=== PATIENT | female | born 1960 | race Caucasian/White ===

== ENCOUNTER 2017-01-19 14:22 | Emergency (ER) | payer BC ==
[2017-01-19 14:43] VITALS: BP 139/74
--- NOTE | 2017-01-19 15:25 | UC ---
UC General HPI - HPI Summary HPI Summary: Chest burning fatigue, chest hurts and he gets fatigued with ambulation - History of Current Complaint Chief Complaint: UCGeneralIllness Stated Complaint: HEADACHE CHEST JOHNSON FEVER Time Seen by Provider: 01/19/17 15:17 Hx Obtained From: Patient Onset/Duration: Sudden Onset Timing: Constant Onset Severity: Moderate Current Severity: Moderate - Allergy/Home Medications Allergies/Adverse Reactions: Allergies Allergy/AdvReac Type Severity Reaction Status Date / Time Droperidol Allergy Severe DYSTONIC Verified 01/19/17 14:43 REACTION Metoclopramide [From Reglan] Allergy Severe Anaphylatic Verified 01/19/17 14:43 Shock Prochlorperazine Allergy Severe DYSTONIC Verified 01/19/17 14:43 [From Compazine] REACTION Fenofibrate [From Tricor] Allergy Unknown Verified 01/19/17 14:43 Reaction Details Gentamicin Allergy Unknown Verified 01/19/17 14:43 Reaction Details PMH/Surg Hx/FS Hx/Imm Hx Previously Healthy: No Endocrine History: Diabetes Cardiovascular History: Cardiac Disease GI/ History: Gastroesophageal Reflux, Other Other GI/ History: kidney transplant - Surgical History Surgical History: Yes Surgery Procedure, Year, and Place: RIGHT KIDNEY TRANSPLANT 1997, APPENDECTOMY, OVARIAN CYST, CHOLECYSTECTOMY, one ovary removed; dialysis grafts - Family History Known Family History: Positive: None - Social History Occupation: Employed Full-time Lives: With Family Alcohol Use: Rare Substance Use Type: None Smoking Status (MU): Never Smoked Tobacco - Immunization History Most Recent Influenza Vaccination: fall 2016 Review of Systems Constitutional: Negative Skin: Negative Eyes: Negative ENT: Negative Respiratory: Shortness Of Breath Cardiovascular: Chest Pain Gastrointestinal: Negative Genitourinary: Negative Motor: Negative Neurovascular: Negative Musculoskeletal: Negative Neurological: Negative Psychological: Negative Is Patient Immunocompromised?: No All Other Systems Reviewed And Are Negative: Yes Physical Exam Triage Information Reviewed: Yes Appearance: Well-Appearing, No Pain Distress, Well-Nourished Vital Signs: Initial Vital Signs Temp 98.8 F 01/19/17 14:38 Pulse 95 01/19/17 14:38 Resp 16 01/19/17 14:38 BP 139/74 01/19/17 14:38 Pulse Ox 99 01/19/17 14:38 Vital Signs Reviewed: Yes Eye Exam: Normal Eyes: Positive: Conjunctiva Clear ENT Exam: Normal ENT: Positive: Normal ENT inspection, Hearing grossly normal. Negative: Trismus , Muffled voice, Hoarse voice Dental Exam: Normal Neck exam: Normal Neck: Positive: Supple, Nontender Respiratory Exam: Normal Respiratory: Positive: Chest non-tender, No respiratory distress, No accessory muscle use Cardiovascular Exam: Normal Cardiovascular: Positive: RRR, No Murmur, Pulses Normal, Brisk Capillary Refill Musculoskeletal Exam: Normal Musculoskeletal: Positive: Strength Intact, ROM Intact, No Edema Neurological Exam: Normal Neurological: Positive: Alert, Muscle Tone Normal Psychological Exam: Normal Skin Exam: Normal Course/Dx - Course Course Of Treatment: to ed by private car - Differential Dx - Multi-Symptom Provider Diagnoses: fatigue Discharge - Discharge Plan Condition: Stable Disposition: HOME Patient Education Materials: Fatigue (ED) Referrals: Krunal Starr MD [Primary Care Provider] - Additional Instructions: Please go directly to the emergency department for additional care than what can be provided for her in the urgent care
== END 2017-01-19 15:36 | disposition home or self-care (01) ==
LOC: UCEAST 14:22
DX: R53.83 Other fatigue (principal); R07.89 Other chest pain; R06.02 Shortness of breath; R51 Headache; Z88.8 Allergy status to other drugs, medicaments and biological substances; E11.9 Type 2 diabetes mellitus without complications; I51.9 Heart disease, unspecified; K21.9 Gastro-esophageal reflux disease without esophagitis; Z94.0 Kidney transplant status; Z90.49 Acquired absence of other specified parts of digestive tract; Z90.721 Acquired absence of ovaries, unilateral
CPT/HCPCS: 99212; G0463

== ENCOUNTER 2017-01-19 15:51 | Emergency (ER) | payer BC ==
[2017-01-19] MEDS ORDERED: NS 0.9% 1000 ML* 1,000 ML IV ONE (17:03)
--- NOTE | 2017-01-19 17:43 | RAD ---
HISTORY: Sepsis COMPARISONS: February 25, 2013 VIEWS: 1: frontal portable view of the chest at 5:28 PM FINDINGS: LINES AND TUBES: None. CARDIOMEDIASTINAL SILHOUETTE: The cardiomediastinal silhouette is normal for portable technique. PLEURA: The costophrenic angles are sharp. No pleural abnormalities are noted. LUNG PARENCHYMA: The lungs are clear. ABDOMEN: The upper abdomen is clear. There is no subphrenic gas. BONES AND SOFT TISSUES: No bone or soft tissue abnormalities are noted. IMPRESSION: NO ACTIVE CARDIOPULMONARY DISEASE.
[2017-01-19] MEDS ORDERED: Ondansetron INJ* 2 MG/ML VIAL IV ONE (18:01)
[2017-01-19] MEDS ORDERED: Acetaminophen TAB* 325 MG PO ONE (18:01)
[2017-01-19 18:02] LABS: Hematocrit 42 % (35-47); Hemoglobin 13.7 g/dl (12.0-16.0); Mean Corpuscular HGB Conc 33 g/dl (31-36); Mean Corpuscular Hemoglobin 30 pg (27-31); Mean Corpuscular Volume 90 fL (80-97); Mean Platelet Volume 8 um3 (7.4-10.4); Red Blood Count 4.63 10^6/ul (4.0-5.4); Red Cell Distribution Width 13 % (10.5-15); White Blood Count 11.7 10^3/ul (3.5-10.8)
[2017-01-19 18:13] LABS: Potassium 4.3 mmol/L (3.5-5.0)
[2017-01-19 18:14] LABS: Albumin 3.7 g/dL (3.2-5.2); BUN/Creatinine Ratio 19.1 (8-20); C Reactive Protein 92.15 mg/L (< 5.00); Calcium 9.8 mg/dL (8.6-10.3); Globulin 3.3 g/dL (2-4); Total Bilirubin 0.7 mg/dL (0.2-1.0)
[2017-01-19 18:15] LABS: Troponin I 0.01 ng/mL (<0.04)
[2017-01-19] MEDS ORDERED: Ciprofloxacin 400MG IVPREMIX(* 400 MG/200 ML BAG IVPB ONE (18:45)
[2017-01-19] MEDS ORDERED: methylPREDNISolone 125 MG* 2 ML VIAL IV ONE (19:27)
[2017-01-19 20:33] LABS: Urine Bacteria Absent (Absent); Urine Bilirubin Negative (Negative); Urine Glucose Negative (Negative); Urine Nitrite Negative (Negative)
[2017-01-19 22:10] VITALS: BP 136/61
--- NOTE | 2017-01-20 10:19 | ED ---
Rahel Hinton Thomas, scribed for Ross Cruz MD on 01/19/17 at 1707 . Headache - HPI Summary HPI Summary: The pt is a 56 y/o F presenting to the ED after being sent from urgent care c/o headache that began two days ago. The pain is in the front of her head and is rated 7/10. The pain is aggravated by nothing and is alleviated by nothing. The patient has treated the pain with Tylenol and rest [employer]. Pt additionally c/o fever, decreased appetite, chills and fatigue. Pt denies cough, dysuria, diarrhea and constipation. Pt notes a kidney transplant 20 years ago. Four days ago, results from the patients blood work indicated hyperkalemia and increased creatinine - History Of Current Complaint Chief Complaint: EDGeneral Stated Complaint: GENERAL ILLNESS-SENT FROM [facility] Time Seen by Provider: 01/19/17 16:50 Hx Obtained From: Patient Onset/Duration: Started days ago - 2 days ago, Still Present Initially Headache Was: Moderate Currently Pain Is: Moderate Timing: Constant Location of Headache: Frontal Aggravating Factor: Nothing Allevating Factors: Nothing Associated Signs And Symptoms: Other (Noted In Comments) - Headache, fever, chills, fatigue, decreased appetite; NEGATIVE: cough, dysuria, diarrhea, constipation - Allergies/Home Medications Allergies/Adverse Reactions: Allergies Allergy/AdvReac Type Severity Reaction Status Date / Time Droperidol Allergy Severe DYSTONIC Verified 01/19/17 14:43 REACTION Metoclopramide [From Reglan] Allergy Severe Anaphylatic Verified 01/19/17 14:43 Shock Prochlorperazine Allergy Severe DYSTONIC Verified 01/19/17 14:43 [From Compazine] REACTION Fenofibrate [From Tricor] Allergy Unknown Verified 01/19/17 14:43 Reaction Details Gentamicin Allergy Unknown Verified 01/19/17 14:43 Reaction Details PMH/Surg Hx/FS Hx/Imm Hx Previously Healthy: No Endocrine/Hematology History: Reports: Hx Diabetes Denies: Hx Thyroid Disease Cardiovascular History: Denies: Hx Hypertension, Hx Pacemaker/ICD Respiratory History: Denies: Hx Asthma, Hx Chronic Obstructive Pulmonary Disease (COPD) GI History: Denies: Hx Ulcer History: Reports: Other Problems/Disorders - Hx kidney transplant Sensory History: Reports: Hx Hearing Aid - WILL REMOVE Psychiatric History: Denies: Hx Panic Disorder - Surgical History Surgery Procedure, Year, and Place: RIGHT KIDNEY TRANSPLANT 1997, APPENDECTOMY, OVARIAN CYST, CHOLECYSTECTOMY, one ovary removed; dialysis grafts Infectious Disease History: No Infectious Disease History: Denies: Hx Clostridium Difficile, Hx Hepatitis, Hx Human Immunodeficiency Virus (HIV), Hx of Known/Suspected MRSA, Hx Shingles, Hx Tuberculosis, Hx Known/ Suspected VRE, Hx Known/Suspected VRSA, History Other Infectious Disease, Traveled Outside the [place] in Last 30 Days - Family History Known Family History: Positive: Diabetes - Social History Alcohol Use: Rare Substance Use Type: Reports: None Smoking Status (MU): Never Smoked Tobacco Review of Systems Positive: Fever, Chills, Fatigue, Other - Decreased appetite Negative: Cough Positive: Other - NEGATIVE: constipation. Negative: Diarrhea Negative: dysuria Positive: Headache All Other Systems Reviewed And Are Negative: Yes Physical Exam - Summary Physical Exam Summary: Appearance: The patient is well-nourished in no acute distress and in no acute pain. Skin: The skin is warm and dry and skin color reflects adequate perfusion. HEENT: The head is normocephalic and atraumatic. The pupils are equal and reactive. The conjunctivae are clear and without drainage. Nares are patent and without drainage. Mouth reveals moist mucous membranes and the throat is without erythema and exudate. The external ears are intact. The ear canals are patent and without drainage. The tympanic membranes are intact. Neck: The neck is supple with full range of motion and non-tender. There are no carotid bruits. There is no neck vein distension. Respiratory: Chest is non-tender. Lungs are clear to auscultation and breath sounds are symmetrical and equal. Cardiovascular: Heart is regular rate and rhythm. There is no murmur or rub auscultated. There is no peripheral edema and pulses are symmetrical and equal. Abdomen: The abdomen is soft and non-tender. There are normal bowel sounds heard in all four quadrants and there is no organomegaly palpated. Musculoskeletal: There is no back tenderness noted. Extremities are non-tender with full range of motion. There is good capillary refill. There is no peripheral edema or calf tenderness elicited. Neurological: Patient is alert and oriented to person, place and time. The patient has symmetrical motor strength in all four extremities. Cranial nerves are grossly intact. Deep tendon reflexes are symmetrical and equal in all four extremities. Psychiatric: The patient has an appropriate affect and does not exhibit any anxiety or depression. Triage Information Reviewed: Yes Vital Signs On Initial Exam: Initial Vitals Temp Pulse Resp BP Pulse Ox 100.5 F 100 16 162/80 97 01/19/17 15:59 01/19/17 15:59 01/19/17 15:59 01/19/17 15:59 01/19/17 15:59 Vital Signs Reviewed: Yes Diagnostics - Vital Signs Vital Signs Temp Pulse Resp BP Pulse Ox 01/19/17 15:59 100.5 F 100 16 162/80 97 - Laboratory Lab Results: Lab Results 01/19/17 01/19/17 01/19/17 Range/Units 17:40 17:40 17:40 WBC 11.7 H (3.5-10.8) 10^3/ul RBC 4.63 (4.0-5.4) 10^6/ul Hgb 13.7 (12.0-16.0) g/dl Hct 42 (35-47) % MCV 90 (80-97) fL MCH 30 (27-31) pg MCHC 33 (31-36) g/dl RDW 13 (10.5-15) % Plt Count 315 (150-450) 10^3/ul MPV 8 (7.4-10.4) um3 Neut % (Auto) 74.4 (38-83) % Lymph % (Auto) 10.9 L (25-47) % [place] % (Auto) 10.6 H (1-9) % Eos % (Auto) 3.5 (0-6) % Baso % (Auto) 0.6 (0-2) % Absolute Neuts (auto) 8.7 H (1.5-7.7) 10^3/ul Absolute Lymphs (auto) 1.3 (1.0-4.8) 10^3/ul Absolute Monos (auto) 1.2 H (0-0.8) 10^3/ul Absolute Eos (auto) 0.4 (0-0.6) 10^3/ul Absolute Basos (auto) 0.1 (0-0.2) 10^3/ul Absolute Nucleated RBC 0 10^3/ul Nucleated RBC % 0 APTT 31.0 (26.0-36.3) seconds Sodium 138 (133-145) mmol/L Potassium 4.3 (3.5-5.0) mmol/L Chloride 106 (101-111) mmol/L Carbon Dioxide 25 (22-32) mmol/L Anion Gap 7 (2-11) mmol/L BUN 22 (6-24) mg/dL Creatinine 1.15 H (0.51-0.95) mg/dL Est GFR ( Amer) 63.0 (>60) Est GFR (Non-Af Amer) 49.0 (>60) BUN/Creatinine Ratio 19.1 (8-20) Glucose 140 H (70-100) mg/dL Lactic Acid (0.5-2.0) mmol/L Calcium 9.8 (8.6-10.3) mg/dL Total Bilirubin 0.70 (0.2-1.0) mg/dL AST 11 L (13-39) U/L ALT 14 (7-52) U/L Alkaline Phosphatase 87 (34-104) U/L Troponin I 0.01 (<0.04) ng/mL C-Reactive Protein 92.15 H (< 5.00) mg/L Total Protein 7.0 (6.4-8.9) g/dL Albumin 3.7 (3.2-5.2) g/dL Globulin 3.3 (2-4) g/dL Albumin/Globulin Ratio 1.1 (1-3) Urine Color Urine Appearance Urine pH (5-9) Ur Specific [place] (1.010-1.030) Urine Protein (Negative) Urine Ketones (Negative) Urine Blood (Negative) Urine Nitrate (Negative) Urine Bilirubin (Negative) Urine Urobilinogen (Negative) Ur Leukocyte Esterase (Negative) Urine WBC (Auto) (Absent) Urine RBC (Auto) (Absent) Ur Squamous Epith Cells (Absent) Urine Bacteria (Absent) Urine Glucose (Negative) Influenza A (Rapid) (Negative) Influenza B (Rapid) (Negative) 01/19/17 01/19/17 01/19/17 Range/Units 17:40 20:10 20:25 WBC (3.5-10.8) 10^3/ul RBC (4.0-5.4) 10^6/ul Hgb (12.0-16.0) g/dl Hct (35-47) % MCV (80-97) fL MCH (27-31) pg MCHC (31-36) g/dl RDW (10.5-15) % Plt Count (150-450) 10^3/ul MPV (7.4-10.4) um3 Neut % (Auto) (38-83) % Lymph % (Auto) (25-47) % [place] % (Auto) (1-9) % Eos % (Auto) (0-6) % Baso % (Auto) (0-2) % Absolute Neuts (auto) (1.5-7.7) 10^3/ul Absolute Lymphs (auto) (1.0-4.8) 10^3/ul Absolute Monos (auto) (0-0.8) 10^3/ul Absolute Eos (auto) (0-0.6) 10^3/ul Absolute Basos (auto) (0-0.2) 10^3/ul Absolute Nucleated RBC 10^3/ul Nucleated RBC % APTT (26.0-36.3) seconds Sodium (133-145) mmol/L Potassium (3.5-5.0) mmol/L Chloride (101-111) mmol/L Carbon Dioxide (22-32) mmol/L Anion Gap (2-11) mmol/L BUN (6-24) mg/dL Creatinine (0.51-0.95) mg/dL Est GFR ( Amer) (>60) Est GFR (Non-Af Amer) (>60) BUN/Creatinine Ratio (8-20) Glucose (70-100) mg/dL Lactic Acid 1.1 (0.5-2.0) mmol/L Calcium (8.6-10.3) mg/dL Total Bilirubin (0.2-1.0) mg/dL AST (13-39) U/L ALT (7-52) U/L Alkaline Phosphatase (34-104) U/L Troponin I (<0.04) ng/mL C-Reactive Protein (< 5.00) mg/L Total Protein (6.4-8.9) g/dL Albumin (3.2-5.2) g/dL Globulin (2-4) g/dL Albumin/Globulin Ratio (1-3) Urine Color [place] Urine Appearance Cloudy Urine pH 5.0 (5-9) Ur Specific [place] 1.015 (1.010-1.030) Urine Protein 1+(30 mg/dl) H (Negative) Urine Ketones Trace H (Negative) Urine Blood 1+ H (Negative) Urine Nitrate Negative (Negative) Urine Bilirubin Negative (Negative) Urine Urobilinogen Negative (Negative) Ur Leukocyte Esterase 3+ H (Negative) Urine WBC (Auto) 3+(>20/hpf) H (Absent) Urine RBC (Auto) 3+(>10/hpf) H (Absent) Ur Squamous Epith Cells Present H (Absent) Urine Bacteria Absent (Absent) Urine Glucose Negative (Negative) Influenza A (Rapid) Negative (Negative) Influenza B (Rapid) Negative (Negative) Result Diagrams: 01/19/17 17:40 01/19/17 17:40 Lab Statement: Any lab studies that have been ordered have been reviewed, and results considered in the medical decision making process. - Radiology CXR Xray Interpretation: No Acute Changes - No active cardiopulmonary disease. ED physician has reviewed this report and agrees. Radiology Interpretation Completed By: Radiologist Headache Course/Dx - Course Course Of Treatment: Ms. Cordova presented with a low grade fever and feeling general malaise and exhaustion. She is immune suppressed and her labs are generally OK. We are still awaiting U/A and her Flu swab. - Diagnoses Provider Diagnoses: Fever Discharge - Discharge Plan Condition: Good Disposition: HOME Prescriptions: Ondansetron ODT TAB* [Zofran 4 MG Odt TAB*] 4 mg PO Q8H PRN 7 Days #21 tab.odt MDD 3 PRN Reason: NAUSEA OR VOMITING Ondansetron ODT TAB* [Zofran Odt TAB*] 4 mg PO Q8H PRN #20 tab.odt PRN Reason: Nausea/Vomiting predniSONE TAB* [Deltasone TAB*] 10 mg PO DAILY #6 tab predniSONE TAB* [Deltasone TAB*] 10 mg PO DAILY #6 tab MDD 1 Sulfamethox/Trimethoprim DS* [Bactrim DS 800/160 TAB*] 1 tab PO BID 5 Days #10 tab MDD 2 Sulfamethox/Trimethoprim DS* [Bactrim DS 800/160 TAB*] 1 tab PO BID #10 tab Patient Education Materials: Urinary Traction Infection in Older Adults (ED) Referrals: Krunal Starr MD [Primary Care Provider] - Additional Instructions: as tolerated The documentation as recorded by the Rahel camacho Thomas accurately reflects the service I personally performed and the decisions made by me, Ross Cruz MD.
== END 2017-01-19 23:02 | disposition home or self-care (01) ==
LOC: ED 15:51
DX: R50.9 Fever, unspecified (principal); E11.9 Type 2 diabetes mellitus without complications
CPT/HCPCS: 36415; 71010; 80053; 81003; 81015; 83605; 84484; 85025; 85730; 86140; 87040; 87086; 87502; 99284; A9270-GY; J0744; J2405; J2930

== ENCOUNTER 2017-02-03 20:13 | Inpatient (IN) | payer BC ==
[2017-02-03] MEDS ORDERED: Aspirin Low Dose CHEW TAB* 81 MG PO ONE (20:42)
[2017-02-03] MEDS ORDERED: Nitroglycerin 2% OINT* 1 GM PAK TOPICAL ONE (20:42)
[2017-02-03] MEDS ORDERED: Ibuprofen TAB* 600 MG PO ONE (21:03)
[2017-02-03 21:11] LABS: Hematocrit 37 % (35-47); Hemoglobin 12.3 g/dl (12.0-16.0); Mean Corpuscular HGB Conc 33 g/dl (31-36); Mean Corpuscular Hemoglobin 29 pg (27-31); Mean Corpuscular Volume 88 fL (80-97); Mean Platelet Volume 8 um3 (7.4-10.4); Red Blood Count 4.21 10^6/ul (4.0-5.4); Red Cell Distribution Width 14 % (10.5-15); White Blood Count 15.2 10^3/ul (3.5-10.8)
[2017-02-03] MEDS ORDERED: traMADol TAB* 50 MG PO ONE (21:24)
--- NOTE | 2017-02-03 21:27 | RAD ---
INDICATION: Chest pain. COMPARISON: Comparison is made with a prior study from January 19, 2017. TECHNIQUE: A portable view of the chest was obtained. FINDINGS: Cardiac and mediastinal contours appear to be within normal limits. The lungs are clear. No pleural effusion is seen. IMPRESSION: NO EVIDENCE FOR ACUTE DISEASE.
[2017-02-03 21:28] LABS: ALT 26 U/L (7-52); Albumin 3.2 g/dL (3.2-5.2); Alkaline Phosphatase 74 U/L (34-104); BUN/Creatinine Ratio 20.8 (8-20); Blood Urea Nitrogen 25 mg/dL (6-24); CO2 Carbon Dioxide 24 mmol/L (22-32); Calcium 9.2 mg/dL (8.6-10.3); Chloride 106 mmol/L (101-111); EGFR Non-African American 46.6 (>60); Globulin 2.6 g/dL (2-4); Glucose 141 mg/dL (70-100); Sodium 136 mmol/L (133-145); Total Protein 5.8 g/dL (6.4-8.9)
[2017-02-03 21:30] LABS: Troponin I 0.02 ng/mL (<0.04)
[2017-02-03 21:34] LABS: Anion Gap 6 mmol/L (2-11)
[2017-02-03] MEDS ORDERED: Trimethobenzamide CAP* 300 MG PO PRN (22:17)
[2017-02-03] MEDS ORDERED: Ondansetron ODT TAB* 4 MG PO PRN (22:17)
[2017-02-03] MEDS ORDERED: Dextrose 50% Syringe 50 ML* 25 GM/50 ML SYRINGE IV PUSH PRN (22:21)
[2017-02-03] MEDS ORDERED: NS 0.9% 1000 ML* 1,000 ML IV SCH (23:00)
[2017-02-03] MEDS ORDERED: HYDROcodone/ACETAMIN 5-325 MG* 1 TAB PO PRN (23:00)
[2017-02-03] MEDS ORDERED: Acetaminophen TAB* 325 MG PO PRN (23:00)
--- NOTE | 2017-02-03 23:10 | HP ---
H&P (Free Text) History and Physical: Mrs Cordova is a 56YO female presenting with chest pain for r/o ACS. Telemetry , serial enzymes, stress test in AM. Cardiology consult pending results, if appropriate.
[2017-02-03 23:43] LABS: Troponin I 0.07 ng/mL (<0.04)
[2017-02-03] MEDS: Morphine INJ* 2 MG/ML 1 ML SYRINGE (TWO MG - NEW SYRINGE VERSION) IV PRN (23:57)
--- NOTE | 2017-02-04 01:10 | HP ---
CC: Dr. Starr * HISTORY AND PHYSICAL: DATE OF ADMISSION: 02/03/17 PRIMARY CARE PHYSICIAN: Dr. Starr. ATTENDING PHYSICIAN: Dr. Alli Ordaz * (dictation provided by Jessica Motley NP). CHIEF COMPLAINT: Chest pain. HISTORY OF PRESENT ILLNESS: Ms. Cordova is a 56-year-old female with a past medical history of diabetes; kidney transplant, on immunosuppressant, who presents today to the hospital with concern for chest pain. Ms. Cordova states that she was feeling her normal state of health when about 2 weeks ago, she developed a urinary tract infection. She was seen here in the emergency room on 01/19/17 with concern for headache, ended up being diagnosed with UTI and discharged home on antibiotics. Since then, she also has diarrhea that started on Saturday and Saturday, she took some Imodium, and today and that resolved. She had no diarrhea today after 1 dose of Imodium. Today, she was doing her bills at home when she has had a sudden onset of left-sided chest pain with pain radiating down into her left arm. The pain has been continuous since then and she has rated it as high as an 8/10 in the emergency room. I believe the pain started about 6 o'clock or so this evening. She denies any fevers, chills, cough, shortness of breath. She has had some mild nausea. Again, no diarrhea today. In the emergency room, Ms. Cordova had a troponin which was 0.02. She had a BUN of 25 and creatinine 1.20; this was very near her baseline. WBCs are 15.2. Chest x-ray shows no evidence for acute disease and an EKG shows no clear evidence of ischemia; it is very similar to previous EKG. There is a suggestion of mild elevation of V2, but in V2 only, and this is similar to previous, but not exactly the same. PAST MEDICAL HISTORY: 1. Depression. 2. Hyperlipidemia. 3. Type 2 diabetes, insulin dependent. 4. 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 5. Bariatric surgery. 6. Ovarian cyst removal. 7. Cholecystectomy. 8. Appendectomy. 9. Hardness of hearing. 10. GERD. MEDICATIONS: 1. Vytorin 1 tab p.o. daily. 2. Hydrocodone/acetaminophen 1 tab p.o. q.6 hours p.r.n. 3. 75/25 Humalog mix 40 units subcutaneously at bedtime. 4. Multivitamin 1 tab p.o. daily. 5. Novolin units subcutaneously t.i.d. 6. Prednisone as directed. 7. Rabeprazole 20 mg p.o. b.i.d. 8. Aspirin 81 mg p.o. daily. 9. Citalopram 30 mg p.o. daily. 10. Docusate 100 mg p.o. daily. 11. Montelukast 10 mg p.o. daily. 12. Mycophenolate 250 mg p.o. b.i.d. 13. Omeprazole 20 mg p.o. daily. 14. Ondansetron 4 mg p.o. q.6 hours p.r.n. 15. Tacrolimus 1 mg p.o. b.i.d. 16. Tigan 300 mg p.o. daily. ALLERGIES: To DROPERIDOL, METOCLOPRAMIDE, PROCHLORPERAZINE, FENOFIBRATE, and GENTAMICIN. FAMILY HISTORY: The patient reports her mother related to kidney transplant at which time she had septic shock. Dad is still alive, but he has diabetes, he has had a heart attack, and had a stroke. REVIEW OF SYSTEMS: Constitutional: No fevers, no chills, no unintended weight loss. Cardiac: Positive for chest pain, positive for intermittent edema. Respiratory: No cough, no hemoptysis, no shortness of breath. GI: Positive for nausea, positive for diarrhea, now resolved. No abdominal pain now. : No gross hematuria, dysuria. Recent diagnosis of urinary tract infection. Neuro: No focal weakness or sensory loss. Eyes: No visual complaints. ENT: No dysphagia. Musculoskeletal: No arthralgia or chest pain. Skin: No rashes or lesions. Psych: Noted for anxiety, positive for depression. PHYSICAL EXAMINATION GENERAL: Ms. Cordova is sitting up in the bed. She is in no acute distress. VITAL SIGNS: Temperature 98.5, pulse rate 73, respiratory rate 14, O2 saturation 99% on room air, blood pressure 136/67. LUNGS: Clear to auscultation bilaterally. No accessory muscle use and good aeration. HEART: S1, S2. No murmur, rub, or gallop, and regular. ABDOMEN: Soft, nontender with bowel sounds positive x4. EXTREMITIES: No cyanosis or edema. NEURO: She is alert, she is oriented x3. She moves all extremities equally. There is no facial asymmetry or focal weakness. Extraocular movements are intact. SKIN: Intact. DIAGNOSTIC STUDIES/LAB DATA: WBC 15.3, hemoglobin 12.3, hematocrit 37, platelet count 243. INR is 0.93. Sodium 136, potassium was not processed yet, chloride 106, serum carbonate 24, BUN 25, creatinine 1.20, glucose 141. Chest x-ray and EKG as read from above. ASSESSMENT AND PLAN: Ms. Cordova is a 56-year-old female with a past medical history of diabetes and kidney transplant, who presents to the hospital with concerns of chest pain radiating into her left arm. Our plans are for observation in the hospital for the followin. Chest pain: The patient's first troponin and EKG showed no convincing evidence of ischemia. Plans for repeat troponin x2. If her troponin is elevated, we will get repeat EKGs. She is continuing to complain of chest pain at this time about 2 or 3/10. She will have morphine and oxygen available p.r.n. She will go on for a chemical stress test with Nuclear Medicine tomorrow. 2. Chronic kidney disease: The patient's BUN and creatinine are very slightly elevated from baseline. Given the fact that she has kidney transplant, I would be very careful with hydration. I would like to have IV fluids overnight in preparation for her stress test tomorrow. 3. Type 2 diabetes: Plan to do low-dose Lantus tonight given that she will likely have very poor oral intake in the next 12 hours or so and she can resume home meds at discharge. Her blood sugar is 141 at the time of arrival. 4. Depression. Continue citalopram. 5. Kidney transplant. Continue home medications. 6. DVT prophylaxis. With heparin subcu. 7. Disposition. To telemetry floor. TIME SPENT: Approximately 60 minutes was spent on the admission of this patient , more than half time spent with the patient at the bedside reviewing the events leading up to this hospitalization, performing the physical examination, and reviewing my plan of care. JESSICA MOTLEY, CORONER TRANSPORT TECHNICIAN [id number]/[facility] #: [id number] MARCUS
[2017-02-04] MEDS: Insulin GLARGINE(*) 1 UNITS UNIT SUBCUT SCH ×2 (01:24→22:48)
[2017-02-04] MEDS: Morphine INJ* 2 MG/ML 1 ML SYRINGE (TWO MG - NEW SYRINGE VERSION) IV PRN (02:10)
[2017-02-04 03:29] LABS: Hematocrit 35 % (35-47); Mean Corpuscular HGB Conc 34 g/dl (31-36); Mean Corpuscular Hemoglobin 30 pg (27-31); Mean Corpuscular Volume 88 fL (80-97); Mean Platelet Volume 8 um3 (7.4-10.4); Red Blood Count 4.04 10^6/ul (4.0-5.4); Red Cell Distribution Width 13 % (10.5-15); White Blood Count 10.1 10^3/ul (3.5-10.8)
[2017-02-04 03:44] LABS: BUN/Creatinine Ratio 22.2 (8-20); Calcium 8.5 mg/dL (8.6-10.3); EGFR African American 67.7 (>60); EGFR Non-African American 52.7 (>60); Potassium 3.8 mmol/L (3.5-5.0)
--- NOTE | 2017-02-04 03:46 | ED ---
Paul Hinton Nikita, scribed for Sudhakar Rodríguez on 02/03/17 at 2049 . HPI Chest Pain - HPI Summary HPI Summary: This patient is a 56 year old F BIBA to ED with a chief complaint of CP since earlier today. Pt was working on her bills during onset. The CC is described as midline and radiating down the L arm and L fingers, resolved but it feels like its coming back again. The patient rates the pain 7/10 in severity. Symptoms aggravated by movement. Symptoms alleviated by nothing. Patient reports nausea and diarrhea (x3 days). Pt received 324mg of ASA; 2 nitro SL and 4mg of Zofran ATTENDING AMBULATORY CARE. - History of Current Complaint Chief Complaint: EDChestPainROMI Time Seen by Provider: 02/03/17 20:18 Hx Obtained From: Patient Onset/Duration: Started Hours Ago, Still Present Timing: Intermittent - went away but feels like it's coming back again Initial Severity: Moderate Current Severity: Moderate Pain Intensity: 7 Pain Scale Used: 0-10 Numeric Chest Pain Location: Mid Sternal Chest Pain Radiates: Yes Chest Pain Radiates To:: Arm - L arm and L fingers Aggravating Factor(s): Movement Alleviating Factor(s): Nothing Associated Signs and Symptoms: Positive: Other: - Patient reports nausea and diarrhea (x3 days). - Allergy/Home Medications Allergies/Adverse Reactions: Allergies Allergy/AdvReac Type Severity Reaction Status Date / Time Droperidol Allergy Severe DYSTONIC Verified 01/19/17 14:43 REACTION Metoclopramide [From Reglan] Allergy Severe Anaphylatic Verified 01/19/17 14:43 Shock Prochlorperazine Allergy Severe DYSTONIC Verified 01/19/17 14:43 [From Compazine] REACTION Fenofibrate [From Tricor] Allergy Unknown Verified 01/19/17 14:43 Reaction Details Gentamicin Allergy Unknown Verified 01/19/17 14:43 Reaction Details Home Medications: Home Medications Omeprazole CAP* [Prilosec CAP* 20 MG] 20 mg PO DAILY 02/03/17 [History Confirmed 02/03/17] Omeprazole CAP* [Prilosec CAP* 20 MG] 20 mg PO DAILY 02/03/17 [History Confirmed 02/03/17] predniSONE TAB* [Deltasone TAB*] 5 mg PO SEE INSTRUCTIONS 02/03/17 [History Confirmed 02/03/17] PMH/Surg Hx/FS Hx/Imm Hx Endocrine/Hematology History: Reports: Hx Diabetes Denies: Hx Thyroid Disease Cardiovascular History: Denies: Hx Hypertension, Hx Pacemaker/ICD Respiratory History: Denies: Hx Asthma, Hx Chronic Obstructive Pulmonary Disease (COPD) GI History: Denies: Hx Ulcer History: Reports: Other Problems/Disorders - Hx kidney transplant Sensory History: Reports: Hx Hearing Aid - WILL REMOVE Psychiatric History: Denies: Hx Panic Disorder - Surgical History Surgery Procedure, Year, and Place: RIGHT KIDNEY TRANSPLANT 1997, APPENDECTOMY, OVARIAN CYST, CHOLECYSTECTOMY, one ovary removed; dialysis grafts Infectious Disease History: No Infectious Disease History: Denies: Hx Clostridium Difficile, Hx Hepatitis, Hx Human Immunodeficiency Virus (HIV), Hx of Known/Suspected MRSA, Hx Shingles, Hx Tuberculosis, Hx Known/ Suspected VRE, Hx Known/Suspected VRSA, History Other Infectious Disease, Traveled Outside the [place] in Last 30 Days - Family History Known Family History: Positive: Cardiac Disease, Diabetes - Social History Alcohol Use: Rare Substance Use Type: Reports: None Smoking Status (MU): Never Smoked Tobacco Review of Systems Positive: Chest Pain - midline radiating down L arm and L fingers Positive: Diarrhea - x3 days, Nausea All Other Systems Reviewed And Are Negative: Yes Physical Exam Triage Information Reviewed: Yes Vital Signs On Initial Exam: Initial Vitals Temp Pulse Resp BP Pulse Ox 98.5 F 73 20 136/67 97 02/03/17 20:18 02/03/17 20:18 02/03/17 20:18 02/03/17 20:18 02/03/17 20:18 Vital Signs Reviewed: Yes Appearance: Positive: Well-Appearing, No Pain Distress Skin: Positive: Warm, Skin Color Reflects Adequate Perfusion, Dry Head/Face: Positive: Normal Head/Face Inspection Eyes: Positive: EOMI, MADYSON ENT: Positive: Normal ENT inspection Neck: Positive: Supple, Nontender Respiratory/Lung Sounds: Positive: Clear to Auscultation, Breath Sounds Present Cardiovascular: Positive: RRR, Pulses are Symmetrical in both Upper and Lower Extremities, Other - mildly tender over L side of chest Abdomen Description: Positive: Nontender, Soft Bowel Sounds: Positive: Present Musculoskeletal: Positive: Normal, Strength/ROM Intact Neurological: Positive: Normal, Sensory/Motor Intact, Alert, Oriented to Person Place, Time - Felipa Coma Scale Coma Scale Total: 15 Diagnostics - Vital Signs Vital Signs Temp Pulse Resp BP Pulse Ox 02/03/17 20:18 98.5 F 73 20 136/67 97 - Laboratory Lab Results: Lab Results 02/03/17 02/03/17 02/03/17 Range/Units 21:00 21:00 21:00 WBC 15.2 H (3.5-10.8) 10^3/ul RBC 4.21 (4.0-5.4) 10^6/ul Hgb 12.3 (12.0-16.0) g/dl Hct 37 (35-47) % MCV 88 (80-97) fL MCH 29 (27-31) pg MCHC 33 (31-36) g/dl RDW 14 (10.5-15) % Plt Count 243 (150-450) 10^3/ul MPV 8 (7.4-10.4) um3 Neut % (Auto) 81.8 (38-83) % Lymph % (Auto) 8.9 L (25-47) % Whitman % (Auto) 7.1 (1-9) % Eos % (Auto) 1.8 (0-6) % Baso % (Auto) 0.4 (0-2) % Absolute Neuts (auto) 12.4 H (1.5-7.7) 10^3/ul Absolute Lymphs (auto) 1.3 (1.0-4.8) 10^3/ul Absolute Monos (auto) 1.1 H (0-0.8) 10^3/ul Absolute Eos (auto) 0.3 (0-0.6) 10^3/ul Absolute Basos (auto) 0.1 (0-0.2) 10^3/ul Absolute Nucleated RBC 0.02 10^3/ul Nucleated RBC % 0.1 INR (Anticoag Therapy) 0.93 (0.89-1.11) APTT 22.6 L (26.0-36.3) seconds Sodium (133-145) mmol/L Potassium Chloride (101-111) mmol/L Carbon Dioxide (22-32) mmol/L Anion Gap (2-11) mmol/L BUN (6-24) mg/dL Creatinine (0.51-0.95) mg/dL Est GFR ( Amer) (>60) Est GFR (Non-Af Amer) (>60) BUN/Creatinine Ratio (8-20) Glucose (70-100) mg/dL Calcium (8.6-10.3) mg/dL Total Bilirubin (0.2-1.0) mg/dL AST ALT (7-52) U/L Alkaline Phosphatase (34-104) U/L Troponin I (<0.04) ng/mL B-Natriuretic Peptide 69 ( - 100) pg/mL Total Protein (6.4-8.9) g/dL Albumin (3.2-5.2) g/dL Globulin (2-4) g/dL Albumin/Globulin Ratio (1-3) // Range/Units 21:00 WBC (3.5-10.8) 10^3/ul RBC (4.0-5.4) 10^6/ul Hgb (12.0-16.0) g/dl Hct (35-47) % MCV (80-97) fL MCH (27-31) pg MCHC (31-36) g/dl RDW (10.5-15) % Plt Count (150-450) 10^3/ul MPV (7.4-10.4) um3 Neut % (Auto) (38-83) % Lymph % (Auto) (25-47) % Whitman % (Auto) (1-9) % Eos % (Auto) (0-6) % Baso % (Auto) (0-2) % Absolute Neuts (auto) (1.5-7.7) 10^3/ul Absolute Lymphs (auto) (1.0-4.8) 10^3/ul Absolute Monos (auto) (0-0.8) 10^3/ul Absolute Eos (auto) (0-0.6) 10^3/ul Absolute Basos (auto) (0-0.2) 10^3/ul Absolute Nucleated RBC 10^3/ul Nucleated RBC % INR (Anticoag Therapy) (0.89-1.11) APTT (26.0-36.3) seconds Sodium 136 (133-145) mmol/L Potassium TNP Chloride 106 (101-111) mmol/L Carbon Dioxide 24 (22-32) mmol/L Anion Gap 6 (2-11) mmol/L BUN 25 H (6-24) mg/dL Creatinine 1.20 H (0.51-0.95) mg/dL Est GFR ( Amer) 60.0 (>60) Est GFR (Non-Af Amer) 46.6 (>60) BUN/Creatinine Ratio 20.8 H (8-20) Glucose 141 H (70-100) mg/dL Calcium 9.2 (8.6-10.3) mg/dL Total Bilirubin 0.50 (0.2-1.0) mg/dL AST TNP ALT 26 (7-52) U/L Alkaline Phosphatase 74 (34-104) U/L Troponin I 0.02 (<0.04) ng/mL B-Natriuretic Peptide ( - 100) pg/mL Total Protein 5.8 L (6.4-8.9) g/dL Albumin 3.2 (3.2-5.2) g/dL Globulin 2.6 (2-4) g/dL Albumin/Globulin Ratio 1.2 (1-3) Result Diagrams: 02/04/17 03:07 02/04/17 03:07 Lab Statement: Any lab studies that have been ordered have been reviewed, and results considered in the medical decision making process. - Radiology CXR Radiology Interpretation Completed By: Radiologist - No evidence for acute disease. ED physician has reviewed this radiology report and agrees. - EKG 2027 Cardiac Rate: NL EKG Rhythm: Sinus Rhythm - [address] Segment: Non-Specific EKG Interpretation: Non-specific ST changes (old changes, no new changes) Chest Pain Course/Dx - Course Assessment/Plan: This patient is a 56 year old F BIBA to ED with a chief complaint of CP since earlier today. The CC is described as midline and radiating down the L arm and L fingers, resolved but it feels like its coming back again. Patient reports nausea and diarrhea (x3 days). In the ED course, pt was given ASA, NTG, and Motrin. EKG reveals sinus rhythm at 67 bpm and non- specific ST changes (old changes, no new changes). CXR reveals NAD. Bloodwork/ UA obtained. Consulted Dr. Ordaz at 0 who accepts pt for admission. Pt will be admitted. - Chest Pain Differential Diagnosis/HQI/PQRI: Acute IA, ACS, Angina, CHF, Chest Wall, Pulmonary Edema - Diagnoses Provider Diagnoses: CP rule out IA, Hx of DM and HTN - Provider Notifications Discussed Care Of Patient With: Alli Ordaz Time Discussed With Above Provider: 21:20 Instructed by Provider To: Other - Consulted Dr. Ordaz who accepts pt for admission. Discharge - Discharge Plan Condition: Stable Disposition: ADMITTED TO [facility] documentation as recorded by the Paul camacho Nikita accurately reflects the service I personally performed and the decisions made by , Sudhakar Rodríguez.
[2017-02-04 03:49] LABS: Troponin I 1.38 ng/mL (<0.04)
[2017-02-04] MEDS ORDERED: Metoprolol Tartrate TAB* 25 MG PO ONE (04:07)
--- NOTE | 2017-02-04 04:09 | PN ---
Progress Note - Progress Note Date of Service: 02/04/17 Note: Nursing called with significant troponin elevation. Repeat ECG, metoprolol 12.5mg PO x1 now, start heparin GTT.
[2017-02-04] MEDS ORDERED: Heparin DRIP 25,000 UNITS(*) 25,000 UNITS/500 ML BAG IVPB SCH (04:15)
[2017-02-04] MEDS ORDERED: Nitroglycerin TAB 0.4 MG* 0.4 MG TAB SL PRN ×2 (04:42→12:14)
[2017-02-04] MEDS ORDERED: Heparin VIAL(*) 5000 UNITS/ML VIAL (FIVE THOUSAND) IV SCH (05:00)
[2017-02-04] MEDS ORDERED: Heparin VIAL(*) 5000 UNITS/ML VIAL (FIVE THOUSAND) SUBCUT SCH (06:00)
--- NOTE | 2017-02-04 08:13 | PN ---
Subjective Date of Service: 02/04/17 Interval History: Pt is feeling "better." She states overnight she could not sleep due to severe chest pain. She states now her pain is 3/10. No SOB or sweats. She did have some nausea overnight. Objective Active Medications: Acetaminophen (Tylenol Tab*) 650 mg PO Q6H PRN PRN Reason: PAIN Hydrocodone Bitart/Acetaminophen (Olmito 5-325 Tab*) 1 tab PO Q4H PRN PRN Reason: PAIN Aspirin (Aspirin Low Dose Tab*) 81 mg PO DAILY [facility] Atorvastatin Calcium (Lipitor*) 10 mg PO QAM [facility] Citalopram Hydrobromide (Celexa Tab*) 30 mg PO DAILY [facility] Dextrose (D50w Syringe 50 Ml*) 12.5 gm IV PUSH .FOR FS < 60 - SS PRN PRN Reason: FS < 60 Docusate Sodium (Colace Cap*) 100 mg PO DAILY [facility] Ezetimibe (Zetia Tab*) 1 mg PO DAILY [facility]J PRN Reason: Protocol Heparin Sodium (Porcine) (Heparin Vial(*)) 0 units IV .PER PROTOCOL MJ PRN Reason: Protocol Last Admin: 02/04/17 05:15 Dose: 5,500 units Sodium Chloride (Ns 0.9% 1000 Ml*) 1,000 mls @ 75 mls/hr IV PER RATE [facility] Last Admin: 02/04/17 01:25 Dose: 75 mls/hr Heparin Sodium/Dextrose (Heparin Drip 25,000 Units(*)) 25,000 units in 500 mls @ 0 mls/hr IVPB .PER RATE MJ; Per Protocol PRN Reason: Protocol Last Admin: 02/04/17 05:15 Dose: 23 mls/hr Insulin Glargine (Lantus(*)) 10 units SUBCUT 2300 MJ Last Admin: 02/04/17 01:24 Dose: 10 units Insulin Human Lispro (Humalog*) 0 units SUBCUT AC MJ PRN Reason: Protocol Metoprolol Tartrate (Lopressor Tab*) 12.5 mg PO Q12HR [facility] Montelukast Sodium (Singulair Tab*) 10 mg PO DAILY [facility] Morphine Sulfate (Morphine Inj (Syringe)*) 2 mg IV Q2H PRN PRN Reason: PAIN Last Admin: 02/04/17 02:10 Dose: 2 mg Mycophenolate Mofetil (Cellcept*) 250 mg PO BID [facility] Nitroglycerin (Nitroglycerin Tab 0.4 Mg*) 0.4 mg SL Q5M PRN PRN Reason: chest pain Nitroglycerin (Nitroglycerin 2% Oint*) 1 inch TOPICAL 0800,1400 MJ PRN Reason: Protocol Omeprazole (Prilosec Cap*) 20 mg PO DAILY [facility] Omeprazole (Prilosec Cap*) 20 mg PO DAILY [facility] Ondansetron HCl (Zofran Odt Tab*) 4 mg PO Q8H PRN PRN Reason: NAUSEA/VOMITING Prednisone (Deltasone Tab*) 5 mg PO MoWeFr@0900 [facility] Tacrolimus (Prograf Cap(*)) 1 mg PO BID [facility] Trimethobenzamide HCl (Tigan Cap*) 300 mg PO DAILY PRN PRN Reason: NAUSEA Vital Signs 02/03/17 02/03/17 02/03/17 23:27 23:30 23:57 Temperature Pulse Rate Respiratory 31 18 16 Rate Blood Pressure 148/67 145/68 (mmHg) O2 Sat by Pulse Oximetry 02/04/17 02/04/17 02/04/17 00:00 00:01 00:15 Temperature 98.0 F Pulse Rate 78 Respiratory 15 15 18 Rate Blood Pressure 133/64 147/66 (mmHg) O2 Sat by Pulse 98 Oximetry 02/04/17 02/04/17 02/04/17 01:28 02:10 03:29 Temperature Pulse Rate Respiratory 18 18 18 Rate Blood Pressure (mmHg) O2 Sat by Pulse Oximetry 02/04/17 03:51 Temperature 99.2 F Pulse Rate 69 Respiratory 20 Rate Blood Pressure 139/56 (mmHg) O2 Sat by Pulse 96 Oximetry Oxygen Devices in Use Now: None Appearance: Middle aged obese female lying in bed sleeping, awakens to voice, NAD Eyes: No Scleral Icterus Ears/Nose/Mouth/Throat: Mucous Membranes Moist Respiratory: Symmetrical Chest Expansion and Respiratory Effort, Clear to Auscultation Cardiovascular: NL Sounds; No Murmurs; No JVD, RRR, No Edema Abdominal: NL Sounds; No Tenderness; No Distention Extremities: No Clubbing, Cyanosis Skin: No Rash or Ulcers, No Nodules or Sclerosis Neurological: Alert and Oriented x 3 Result Diagrams: 02/04/17 03:07 02/04/17 03:07 Additional Lab and Data: Lab Results 02/03/17 02/03/17 02/03/17 Range/Units 21:00 21:00 21:00 WBC 15.2 H (3.5-10.8) 10^3/ul RBC 4.21 (4.0-5.4) 10^6/ul Hgb 12.3 (12.0-16.0) g/dl Hct 37 (35-47) % MCV 88 (80-97) fL MCH 29 (27-31) pg MCHC 33 (31-36) g/dl RDW 14 (10.5-15) % Plt Count 243 (150-450) 10^3/ul MPV 8 (7.4-10.4) um3 Neut % (Auto) 81.8 (38-83) % Lymph % (Auto) 8.9 L (25-47) % Floyd % (Auto) 7.1 (1-9) % Eos % (Auto) 1.8 (0-6) % Baso % (Auto) 0.4 (0-2) % Absolute Neuts (auto) 12.4 H (1.5-7.7) 10^3/ul Absolute Lymphs (auto) 1.3 (1.0-4.8) 10^3/ul Absolute Monos (auto) 1.1 H (0-0.8) 10^3/ul Absolute Eos (auto) 0.3 (0-0.6) 10^3/ul Absolute Basos (auto) 0.1 (0-0.2) 10^3/ul Absolute Nucleated RBC 0.02 10^3/ul Nucleated RBC % 0.1 INR (Anticoag Therapy) 0.93 (0.89-1.11) APTT 22.6 L (26.0-36.3) seconds Sodium (133-145) mmol/L Potassium Chloride (101-111) mmol/L Carbon Dioxide (22-32) mmol/L Anion Gap (2-11) mmol/L BUN (6-24) mg/dL Creatinine (0.51-0.95) mg/dL Est GFR ( Amer) (>60) Est GFR (Non-Af Amer) (>60) BUN/Creatinine Ratio (8-20) Glucose (70-100) mg/dL Calcium (8.6-10.3) mg/dL Total Bilirubin (0.2-1.0) mg/dL AST ALT (7-52) U/L Alkaline Phosphatase (34-104) U/L Troponin I (<0.04) ng/mL B-Natriuretic Peptide 69 ( - 100) pg/mL Total Protein (6.4-8.9) g/dL Albumin (3.2-5.2) g/dL Globulin (2-4) g/dL Albumin/Globulin Ratio (1-3) 02/03/ Range/Units 21:00 WBC (3.5-10.8) 10^3/ul RBC (4.0-5.4) 10^6/ul Hgb (12.0-16.0) g/dl Hct (35-47) % MCV (80-97) fL MCH (27-31) pg MCHC (31-36) g/dl RDW (10.5-15) % Plt Count (150-450) 10^3/ul MPV (7.4-10.4) um3 Neut % (Auto) (38-83) % Lymph % (Auto) (25-47) % Floyd % (Auto) (1-9) % Eos % (Auto) (0-6) % Baso % (Auto) (0-2) % Absolute Neuts (auto) (1.5-7.7) 10^3/ul Absolute Lymphs (auto) (1.0-4.8) 10^3/ul Absolute Monos (auto) (0-0.8) 10^3/ul Absolute Eos (auto) (0-0.6) 10^3/ul Absolute Basos (auto) (0-0.2) 10^3/ul Absolute Nucleated RBC 10^3/ul Nucleated RBC % INR (Anticoag Therapy) (0.89-1.11) APTT (26.0-36.3) seconds Sodium 136 (133-145) mmol/L Potassium TNP Chloride 106 (101-111) mmol/L Carbon Dioxide 24 (22-32) mmol/L Anion Gap 6 (2-11) mmol/L BUN 25 H (6-24) mg/dL Creatinine 1.20 H (0.51-0.95) mg/dL Est GFR ( Amer) 60.0 (>60) Est GFR (Non-Af Amer) 46.6 (>60) BUN/Creatinine Ratio 20.8 H (8-20) Glucose 141 H (70-100) mg/dL Calcium 9.2 (8.6-10.3) mg/dL Total Bilirubin 0.50 (0.2-1.0) mg/dL AST TNP ALT 26 (7-52) U/L Alkaline Phosphatase 74 (34-104) U/L Troponin I 0.02 (<0.04) ng/mL B-Natriuretic Peptide ( - 100) pg/mL Total Protein 5.8 L (6.4-8.9) g/dL Albumin 3.2 (3.2-5.2) g/dL Globulin 2.6 (2-4) g/dL Albumin/Globulin Ratio 1.2 (1-3) Assess/Plan/Problems-Billing Ms Cordova is a 56 yo F who has a h/o renal transplant, type II DM, HTN and HLD who presented to the ER with c/o CP. - Patient Problems (1) NSTEMI (non-ST elevated myocardial infarction) Current Visit: Yes Status: Acute Code(s): I21.4 - NON-ST ELEVATION (NSTEMI) MYOCARDIAL INFARCTION SNOMED Code(s): 045404662 Comment: The patient presented with chest pain but had a negative troponin. Overnight her troponin climbed to 1.38 most recently. She had severe pain overnight that kept her from sleeping, the pain is still present but less now. Cardiology consult has been requested with Dr. Lyle. I think she should go for catheterization-likely today. Continue ASA 81mg daily, lipitor, zetia, metoprolol, lisinopril, NTG. NPO except meds now. (2) HTN (hypertension) Current Visit: Yes Status: Acute Code(s): I10 - ESSENTIAL (PRIMARY) HYPERTENSION SNOMED Code(s): 27508212 Comment: Will add lisinopril 5mg daily to try to get better BP control. Continue metoprolol tartrate 12.5mg BID. Monitor BP. (3) HLD (hyperlipidemia) Current Visit: Yes Status: Acute Code(s): E78.5 - HYPERLIPIDEMIA, UNSPECIFIED SNOMED Code(s): 13413534 Comment: Check lipid panel. Continue statin and zetia. Will not increase statin dose yet as it can raise the level of tacrolimus. If her lipid panel is not ideal will increase her statin dose. (4) Type II diabetes mellitus Current Visit: Yes Status: Acute Comment: Sugars are under fair control. Check A1c. Continue lantus 10 units SQ daily and lispro sliding scale. (5) Renal transplant, status post Current Visit: Yes Status: Acute Code(s): Z94.0 - KIDNEY TRANSPLANT STATUS SNOMED Code(s): 201746463 Comment: Creatinine is essentially at baseline. Will continue to follow closely as I suspect she is going to need a catheterization and will get a dye load. (6) DVT prophylaxis Current Visit: Yes Status: Acute Code(s): [id number] - SNOMED Code(s): 116900991 Comment: heparin drip (7) Full code status Current Visit: Yes Status: Acute Code(s): Z78.9 - OTHER SPECIFIED HEALTH STATUS SNOMED Code(s): 914763059
[2017-02-04] MEDS: Insulin LISPRO* 1 UNITS UNIT SUBCUT SCH ×3 (08:37→17:25)
[2017-02-04] MEDS ORDERED: Ezetimibe TAB* 10 MG PO SCH (09:00)
[2017-02-04] MEDS ORDERED: predniSONE TAB* 10 MG PO SCH (09:00)
[2017-02-04] MEDS: Citalopram TAB* 10 MG PO SCH (09:03)
[2017-02-04] MEDS: Atorvastatin* 10 MG TAB PO SCH (09:03)
[2017-02-04] MEDS: Lisinopril TAB* 5 MG PO SCH (09:03)
[2017-02-04] MEDS: Docusate CAP* 100 MG PO SCH (09:03)
[2017-02-04] MEDS: Montelukast Sodium TAB* 10 MG PO SCH (09:04)
[2017-02-04] MEDS ORDERED: Diazepam TAB(*) 5 MG PO ONE (09:09)
[2017-02-04] MEDS ORDERED: diPHENhydraMINE PO* 25 MG PO ONE (09:09)
[2017-02-04] MEDS: Aspirin Low Dose CHEW TAB* 81 MG PO SCH (09:14)
[2017-02-04] MEDS: Tacrolimus CAP(*) 1 MG PO SCH ×2 (09:14→20:21)
[2017-02-04] MEDS: Omeprazole CAP* 20 MG PO SCH ×2 (09:14)
[2017-02-04] MEDS: MYCOPHENOLATE MOFETIL 200 MG/ML PO SCH ×2 (09:15→20:20)
[2017-02-04] MEDS ORDERED: Heparin 2 UNITS/ML IVPREMIX* 3,000 ML IV ONE (09:26)
[2017-02-04] MEDS ORDERED: fentaNYL* 50 MCG/ML 2 ML VIAL (100 MCG VIAL) ONE (09:26)
[2017-02-04] MEDS ORDERED: Iodixanol* (CONTRAST) 320 MG/ML 100 ML SDV ONE (09:27)
[2017-02-04] MEDS ORDERED: Lidocaine 1% INJ* 10 MG/ML 30 ML SDV ONE ×2 (09:27→15:15)
[2017-02-04] MEDS ORDERED: Midazolam* 1 MG/ML 10 ML VIAL (10 MG) ONE (09:27)
[2017-02-04 10:06] LABS: Troponin I 5.6 ng/mL (<0.04)
[2017-02-04] MEDS ORDERED: Ticagrelor* 90 MG TAB PO ONE (10:25)
[2017-02-04 10:33] LABS: HDL Cholesterol 32.9 mg/dL
[2017-02-04] MEDS ORDERED: nitroGLYCERIN DRIP* 25,000 MCG/250 ML BTL ONE (11:29)
--- NOTE | 2017-02-04 11:47 | CONS ---
CC: Dr. Krunal Starr * CARDIOLOGY CONSULTATION: DATE OF CONSULTATION: 02/04/17 INDICATION FOR CONSULTATION: Acute coronary syndrome. HISTORY OF PRESENT ILLNESS: The patient is a 56-year-old female with a history of diabetes, history of renal transplant 20 years ago, who was admitted to the hospital with chest pain. The patient was in the emergency room on 01/19/17 for nausea and abdominal pain and was found to have a urinary tract infection. She was started on antibiotics and discharged home. The patient states that she was doing well, except for some mild diarrhea. However, yesterday, she started having chest pain. It was a sudden onset chest pain radiating to her left arm. She was diaphoretic and nauseous with that symptom. She called her and was transported to the emergency room. On arrival to the emergency room, the patient was having 3/10 chest pain. She was given sublingual nitroglycerin and morphine and her chest pain reportedly resolved. In speaking with the patient, the patient states that she has been having on and off chest pain throughout the night. It is a pressure in the center of her chest, occasionally radiating to her left arm. Her maximum chest pain over the night was 4/10. Currently, the patient is having mild chest pain at 3/10. The patient's initial troponin level was normal. However, her troponin level this morning was 1.38. A repeat EKG this morning demonstrated a normal sinus rhythm with 0.[address] segment elevation in leads V2 and V3. An echocardiogram this morning demonstrated mild hypokinesis to the distal anterior wall and the apex. Full report is to follow. PAST MEDICAL HISTORY: Significant for: 1. Diabetes, insulin dependent. 2. Renal transplant 20 years ago. 3. Bariatric surgery. 4. Cholecystectomy. 5. Appendectomy. 6. Gastroesophageal reflux disease. 7. Depression. OUTPATIENT MEDICATIONS: 1. Vytorin 1 tablet a day. 2. Insulin as directed. 3. Multivitamin a day. 4. Prednisone 5 mg 4 days a week. 5. Omeprazole 20 mg b.i.d. 6. Aspirin 81 mg a day. 7. Citalopram 30 mg a day. 8. Singulair 10 mg a day. 9. Tacrolimus 1 mg b.i.d. 10. Reglan 300 mg daily. ALLERGIES: METOCLOPRAMIDE, PROCHLORPERAZINE, GENTAMICIN. FAMILY HISTORY: Father is still alive, with diabetes. He has had a heart attack and a stroke in the past. Mother of sepsis. SOCIAL HISTORY: She is . She continues to work. She denies any tobacco or alcohol use. PHYSICAL EXAM: Height is 5 feet 5 inches, weight 215 pounds. Temperature 98.5 , heart rate 70, respiratory rate 18, oxygen saturation is 94% on room air, blood pressure 130/70. Sclerae anicteric. Oropharynx is pink without erythema. Carotids are 2+ without bruits. JVD is normal. Thyroid is normal. Cardiac Exam: S1, S2, without any murmurs, rubs or gallops. PMI is normal. Lungs are clear to auscultation bilaterally. No dullness to percussion. Abdomen is obese, soft, nontender, nondistended, with normoactive bowel sounds. Extremities show no edema. She has 2+ pulses in her femorals, dorsalis pedis and popliteal. The patient is awake and alert and oriented. She moves all 4 extremities equally. DIAGNOSTIC STUDIES/LAB DATA: CBC within normal limits. Chemistries within normal limits. BUN 24, creatinine 1.08. AST and ALT are within normal limits. BNP is 69. IMPRESSION: This is a 56-year-old female with a history of diabetes, history of renal transplant, who comes in for an acute coronary syndrome. The patient' s EKG shows an evolving anterior wall event. Her echocardiogram shows hypokinesis to the distal anterior wall. The patient continues to have 3/10 chest pain. For now, my recommendation is for the patient to undergo cardiac catheterization. The risks and benefits of this were described in great detail to the patient. She is willing to proceed. Further recommendations after her cardiac catheterization. [id number]/[facility] #: [id number] MTDD
[2017-02-04] MEDS ORDERED: NS 0.9% 1000 ML* 1,000 ML IV SCH (12:15)
[2017-02-04] MEDS ORDERED: Nitroglycerin 2% OINT* 1 GM PAK TOPICAL SCH (14:00)
[2017-02-04 15:52] LABS: Hematocrit 37 % (35-47); Hemoglobin 12.3 g/dl (12.0-16.0); Mean Corpuscular HGB Conc 33 g/dl (31-36); Mean Corpuscular Hemoglobin 29 pg (27-31); Mean Corpuscular Volume 89 fL (80-97); Mean Platelet Volume 8 um3 (7.4-10.4); Red Blood Count 4.19 10^6/ul (4.0-5.4); Red Cell Distribution Width 13 % (10.5-15); White Blood Count 9.5 10^3/ul (3.5-10.8)
[2017-02-04] MEDS ORDERED: Lidocain 1% EPI 1:100,000 * 30 ML MDV ONE (16:00)
[2017-02-04] MEDS ORDERED: Lidocaine 2% W/EPI 1:100,000* 20 ML MDV ONE (16:00)
--- NOTE | 2017-02-04 16:10 | ECHO ---
Patient: AVERY CULVER [facility] Rec#: [id number] : 1960 Date: 02/04/2017 Age: 56y Height: 165.1 cm / 65.0 in Weight: 97.52 kg / 214.9 lbs Sex: F BSA: 2.04 Room#: 4 Admit Date#: 02/03/2017 Type: Inpatient Referring: Marly Guzman DO Reading: Everett Lyle MD Home Stager: Kely Amanda RDCS,RDMS CC: Krunal Starr MD Transthoracic Echocardiogram Indication: NSTEMI, CP BP: 139/56 HR: 60 Rhythm: NSR Findings History: DM, Renal transplant, HLD Technical Comments: The study quality is good. Left Ventricle: The left ventricular chamber size is normal. Moderate concentric left ventricular hypertrophy is observed. Mild global hypokinesis of the left ventricle is observed. There is mildly decreased left ventricular systolic function. The estimated ejection fraction is 45-50%. Abnormal left ventricular diastolic filling is observed, consistent with impaired relaxation. The apical anterior wall segment is akinetic (score 3). Overall wallmotion score index is 2.00 Left Atrium: The left atrial chamber size is normal. Right Ventricle: The right ventricular chamber size and systolic function are within normal limits. The right ventricle wall thickness is moderately increased. Right Atrium: The right atrial cavity size is normal. Aortic Valve: The aortic valve is trileaflet. The aortic valve leaflets are mildly thickened. There is no evidence of aortic regurgitation. There is no evidence of aortic stenosis. Mitral Valve: There is posterior mitral annular calcification. The mitral valve leaflets are mildly thickened. There is a trace of mitral regurgitation. There is no evidence of mitral stenosis. Tricuspid Valve: The tricuspid valve leaflets are normal. There is trace tricuspid regurgitation. Unable to estimate the right ventricular systolic pressure. Pulmonic Valve: There is no evidence of pulmonic valve thickening. There is no evidence of pulmonic regurgitation. Pericardium: There is no significant pericardial effusion. Aorta: The aortic root appears normal. There is no dilatation of the aortic arch. Pulmonary Artery: The main pulmonary artery is not well visualized. Venous: The inferior vena cava appears normal in size. There is a greater than 50% respiratory change in the inferior vena cava dimension. Summary: There was not any prior study for comparison. Conclusions Moderate concentric left ventricular hypertrophy is observed. Mild global hypokinesis of the left ventricle is observed. There is mildly decreased left ventricular systolic function. The estimated ejection fraction is 45-50%. The apical anterior wall segment is akinetic (score 3). The right ventricular chamber size and systolic function are within normal limits. There is no evidence of aortic regurgitation. There is a trace of mitral regurgitation. There is trace tricuspid regurgitation. Unable to estimate the right ventricular systolic pressure. There is no significant pericardial effusion. Measurements Name Value Normal Range RVIDd (AP) 2D 1.9 cm (0.9 - 2.6) RVDdMajor (2D) 2.7 cm (2.2 - 4.4) RAd ISD 4CH 4.3 cm (3.4 - 4.9) RA (A4C)W 3.3 cm (2.9 - 4.6) IVSd (2D) 1.5 cm (0.6 - 1) LVPWd (2D) 1.5 cm (0.6 - 1) LVIDd (2D) 4 cm (3.6 - 5.4) LVIDs (2D) 2.4 cm - LV FS (2D) 40 % (25 - 45) Aortic Annulus 2 cm (1.4 - 2.6) Ao root diameter (2D) 3.1 cm (2.1 - 3.5) Ascending Ao 3.2 cm (2.1 - 3.4) Aortic arch 2.9 cm (1.8 - 3.4) LA dimension (AP) 2D 3.3 cm (2.3 - 3.8) LAd ISD 4CH 5.8 cm (2.9 - 5.3) LA ISD 4CH W 4 cm (2.5 - 4.5) Name Value Normal Range LA ESV SP 4CH (A/L) 60.3 ml - LA ESV SP 2CH (A/L) 63.79 ml - LA ESV BP (A/L) 64.49 ml - LA ESV BP (A/L) index 32 ml/m2 - LA ESV SP 4CH (MOD) 56 ml - LA ESV SP 2CH (MOD) 59.13 ml - Name Value Normal Range MV E-wave Vmax 0.9 m/sec - MV deceleration time 159 msec - MV A-wave Vmax 1.1 m/sec - MV E:A ratio 0.8 ratio - P. vein S-wave Vmax 0.6 m/sec - P. vein D-wave Vmax 0.44 m/sec - P. vein S:D Vmax ratio 1.3 ratio - P. vein A-wave duration 122 msec - LV lateral e' Vmax 0.05 m/sec - LV E:e' lateral ratio 17 ratio - Name Value Normal Range AV Vmax 1.7 m/sec - AV VTI 34.1 cm - AV peak gradient 11.5 mmHg - AV mean gradient 5.3 mmHg - LVOT Vmax 1 m/sec - LVOT VTI 27 cm - LVOT peak gradient 4 mmHg - LVOT mean gradient 2.3 mmHg - LUDWIG Vmax 0.7 m/sec - Name Value Normal Range MV Vmax 1.1 m/sec - MV VTI 33.3 cm - MV peak gradient 5 mmHg - MV mean gradient 2.1 mmHg - MV PHT 54 msec - MVA (PHT) 4 cm2 - Name Value Normal Range RAP 8 mmHg - IVC diameter 1.2 cm - Name Value Normal Range PV Vmax 0.7 m/sec - PV peak gradient 2 mmHg - Wallmotion BAS Not Seen BA Not Seen BAL Not Seen CAROLINE Not Seen BI Not Seen BIS Not Seen MAS Not Seen MA Not Seen MAL Not Seen MIL Not Seen VT Not Seen MIS Not Seen Normal AA Akinetic AL Not Seen AI Not Seen APEX Hypokinetic
[2017-02-04] MEDS: Metoprolol Tartrate TAB* 25 MG PO SCH ×2 (17:25→20:14)
[2017-02-04] MEDS: Ticagrelor* 90 MG TAB PO SCH (20:39)
[2017-02-04] MEDS ORDERED: Al Hydrox/Mg Hydrox/Simet LIQ* 30 ML UDC PO PRN (21:40)
[2017-02-05] MEDS: Morphine INJ* 2 MG/ML 1 ML SYRINGE (TWO MG - NEW SYRINGE VERSION) IV PRN ×2 (00:45→03:29)
--- NOTE | 2017-02-05 05:01 | CATH ---
CC: Dr. Starr; Dr. Lyle * STENT REPORT: DATE OF PROCEDURE: 02/04/17 - ROOM #ICU-01 PRIMARY CARE PROVIDER: Dr. Starr. EMPLOYMENT LAW ATTORNEY: Dr. Lyle. PROCEDURE: Diagnostic catheterization by Dr. Lyle; stent placement, LAD, Dr. Villalobos, 2.5 x 16, 2.5 x 16 drug-eluting stents, mid LAD; Angio-Seal, right common femoral artery. HISTORY: A 56-year-old woman with non-ST elevation infarct, diagnostic catheterization by Dr. Lyle demonstrated mid LAD occlusion, I was asked to evaluate for intervention. See Dr. Lyle's report for details of the diagnostic study. INTERVENTIONAL MEDICATIONS: 1. Subcu lidocaine. 2. Brilinta 180 mg p.o. 3. Heparin 3000 units, 3000 units, 2000 units IV. GUIDING CATHETER: 6F VL 3.5, wire 14 K[employer]ix. Predilatation balloon Emerge 2.5 x 15 after which a 2.5 x 16 Synergy drug-eluting stent was deployed to 11 atmospheres, 10 seconds, post dilated to 18 atmospheres with a 2.5 x 15 non- compliant balloon. A second more distal stenosis was visualized, covered with a second overlapping distal 2.5 x 16 drug-eluting stent was deployed, 11 atmospheres, 10 seconds, post dilated with a 2.5 x 15 non-compliant balloon to 14 atmospheres, 30 seconds distally, and at the overlap for 18 atmospheres, 30 seconds. Angio-Seal was then deployed in the right common femoral after angiogram demonstrated entry in the segment 2. HEMODYNAMICS: Final BP 117/59. ANGIOGRAPHY: Right femoral artery. Sheath entry is in segment 2, there is no stenosis. LAD. It has heavy calcification, supplied several small septals, has a small first diagonal which has proximal tubular 40% stenosis, after which the LAD is occluded, there is faint apical visualization through [id number] collaterals. After predilatation, stent placement and post dilatation, there is a distal intraluminal lucency, which was covered with a second overlapping distal stent after which there is KAUSHAL-3 flow, no residual stenosis at the stented segment. There is an outflow step-down which was not stented because of small distal vessel caliber. CONCLUSION: 1. Successful drug-eluting stent placement, mid LAD, in the setting of a non- ST elevation infarct. 2. The circumflex OM will be evaluated with stress imaging. 3. Successful Angio-Seal, right common femoral artery. [id number]/[facility] #: [id number] MARCUS
[2017-02-05 07:48] LABS: Hematocrit 33 % (35-47); Mean Corpuscular HGB Conc 34 g/dl (31-36); Mean Corpuscular Hemoglobin 30 pg (27-31); Mean Corpuscular Volume 88 fL (80-97); Mean Platelet Volume 8 um3 (7.4-10.4); Red Blood Count 3.68 10^6/ul (4.0-5.4); Red Cell Distribution Width 14 % (10.5-15); White Blood Count 8.6 10^3/ul (3.5-10.8)
[2017-02-05] MEDS: Insulin LISPRO* 1 UNITS UNIT SUBCUT SCH (08:03)
[2017-02-05] MEDS: Docusate CAP* 100 MG PO SCH (08:05)
[2017-02-05] MEDS: Lisinopril TAB* 5 MG PO SCH (08:05)
[2017-02-05] MEDS: Montelukast Sodium TAB* 10 MG PO SCH (08:05)
[2017-02-05] MEDS: Ticagrelor* 90 MG TAB PO SCH (08:05)
[2017-02-05] MEDS: Omeprazole CAP* 20 MG PO SCH ×2 (08:06→08:09)
[2017-02-05] MEDS: Aspirin Low Dose CHEW TAB* 81 MG PO SCH (08:06)
[2017-02-05] MEDS: Citalopram TAB* 10 MG PO SCH (08:06)
[2017-02-05] MEDS: Metoprolol Tartrate TAB* 25 MG PO SCH (08:06)
[2017-02-05] MEDS: Atorvastatin* 10 MG TAB PO SCH (08:06)
--- NOTE | 2017-02-05 08:06 | CATH ---
CC: Dr. Krunal Starr. CARDIAC CATHETERIZATION: DATE OF STUDY: 02/04/17 PROCEDURE: Cardiac catheterization. Coronary Angiography INDICATION: Acute coronary syndrome. The patient is a 56-year-old female with a history of renal transplant, history of diabetes, was admitted to the hospital with acute coronary syndrome. She had elevated troponins, abnormal EKG, and ongoing chest pain. Cardiac catheterization was recommended. DESCRIPTION OF PROCEDURE: The patient was brought to the cardiac catheterization lab in a fasting state. Informed consent had been obtained prior to the procedure. All labs were reviewed. The patient was placed supine on the catheterization table. Both femoral areas were cleaned and draped in the usual fashion. 1% lidocaine was used for local anesthesia. The right femoral artery was entered by a modified Seldinger technique, and a 6-Cypriot sheath introducer was placed. The patient underwent coronary angiography using a 6-Cypriot JL4 catheter and a 6-Cypriot JR4 catheter. At the end of the procedure, the patient went on to angioplasty and stenting of her left anterior descending artery. Please see Dr. Villalobos' note for that. The patient tolerated the procedure well with no complications. A total of 30 cc of Visipaque dye was used, and a total of 1.3 minutes of abner time was used. FINDINGS: 1. Left main artery. The left main was normal in size. It bifurcated into the LAD and circumflex. There was no evidence of stenosis. 2. Left anterior descending. The LAD was normal in size and it gave off one large diagonal vessel. After the first diagonal vessel, there was a complete occlusion of the LAD with very faint collaterals to the distal LAD. 3. Left circumflex artery. The circumflex artery was normal in size. It gave off one obtuse marginal branch. The circumflex itself was without disease. The first obtuse marginal had a proximal eccentric 60% stenosis. The right coronary artery of the RCA was a large dominant vessel, giving off the PDA and posterolateral branches. There was mild calcification of the proximal vessel. The remainder of the vessel was without disease. IMPRESSION: 1. A 100% occlusion to the left anterior descending artery with faint collaterals to the distal vessel. 2 A 60% stenosis to the OM1 vessel. RECOMMENDATIONS: The patient will go on to angioplasty and stenting of her LAD. [id number]/[facility] #: [id number] [facility]
[2017-02-05 08:21] LABS: BUN/Creatinine Ratio 23.4 (8-20); Blood Urea Nitrogen 22 mg/dL (6-24); CO2 Carbon Dioxide 22 mmol/L (22-32); Calcium 8.7 mg/dL (8.6-10.3); Chloride 111 mmol/L (101-111); EGFR African American 79.5 (>60); EGFR Non-African American 61.8 (>60); Glucose 186 mg/dL (70-100); Sodium 138 mmol/L (133-145)
[2017-02-05 08:25] LABS: Anion Gap 5 mmol/L (2-11)
--- NOTE | 2017-02-05 08:36 | DCNOTE ---
Subjective Date of Service: 02/05/17 Interval History: No chest pain, cough, SOB. `No new c/o, anxious to go home. Objective Active Medications: Acetaminophen (Tylenol Tab*) 650 mg PO Q6H PRN PRN Reason: PAIN Hydrocodone Bitart/Acetaminophen ([place] 5-325 Tab*) 1 tab PO Q4H PRN PRN Reason: PAIN Last Admin: 02/04/17 17:25 Dose: 1 tab Al Hydrox/Mg Hydrox/Simethicone (Maalox Plus*) 30 ml PO Q6H PRN PRN Reason: INDIGESTION Last Admin: 02/04/17 21:53 Dose: 30 ml Aspirin (Aspirin Low Dose Tab*) 81 mg PO DAILY [facility] Last Admin: 02/05/17 08:06 Dose: 81 mg Atorvastatin Calcium (Lipitor*) 80 mg PO 1700 [facility] Citalopram Hydrobromide (Celexa Tab*) 30 mg PO DAILY [facility] Last Admin: 02/05/17 08:06 Dose: 30 mg Dextrose (D50w Syringe 50 Ml*) 12.5 gm IV PUSH .FOR FS < 60 - SS PRN PRN Reason: FS < 60 Docusate Sodium (Colace Cap*) 100 mg PO DAILY [facility] Last Admin: 02/05/17 08:05 Dose: 100 mg Insulin Glargine (Lantus(*)) 10 units SUBCUT 2300 [facility] Last Admin: 02/04/17 22:48 Dose: 10 units Insulin Human Lispro (Humalog*) 0 units SUBCUT AC [facility] PRN Reason: Protocol Last Admin: 02/05/17 08:03 Dose: 3 units Lisinopril (Prinivil Tab*) 5 mg PO DAILY [facility] Last Admin: 02/05/17 08:05 Dose: 5 mg Metoprolol Tartrate (Lopressor Tab*) 12.5 mg PO Q12HR [facility] Last Admin: 02/05/17 08:06 Dose: 12.5 mg Montelukast Sodium (Singulair Tab*) 10 mg PO DAILY [facility] Last Admin: 02/05/17 08:05 Dose: 10 mg Morphine Sulfate (Morphine Inj (Syringe)*) 2 mg IV Q2H PRN PRN Reason: PAIN Last Admin: 02/05/17 03:29 Dose: 2 mg Mycophenolate Mofetil (Cellcept*) 250 mg PO BID [facility] Last Admin: 02/04/17 20:20 Dose: 250 mg Nitroglycerin (Nitroglycerin Tab 0.4 Mg*) 0.4 mg SL Q5M PRN PRN Reason: ANGINA Omeprazole (Prilosec Cap*) 20 mg PO DAILY [facility] Last Admin: 02/05/17 08:06 Dose: 20 mg Omeprazole (Prilosec Cap*) 20 mg PO DAILY [facility] Last Admin: 02/05/17 08:09 Dose: Not Given Ondansetron HCl (Zofran Odt Tab*) 4 mg PO Q8H PRN PRN Reason: NAUSEA/VOMITING Prednisone (Deltasone Tab*) 5 mg PO MoWeFr@0900 [facility] Last Admin: 02/04/17 09:14 Dose: 5 mg Tacrolimus (Prograf Cap(*)) 1 mg PO BID [facility] Last Admin: 02/04/17 20:21 Dose: 1 mg Ticagrelor (Brilinta*) 90 mg PO BID [facility] Last Admin: 02/05/17 08:05 Dose: 90 mg Trimethobenzamide HCl (Tigan Cap*) 300 mg PO DAILY PRN PRN Reason: NAUSEA Last Admin: 02/05/17 08:05 Dose: 300 mg Vital Signs 02/04/17 02/04/17 02/04/17 12:14 12:29 12:30 Temperature Pulse Rate 61 60 Respiratory 18 6 15 Rate Blood Pressure 142/75 142/74 (mmHg) O2 Sat by Pulse 96 96 Oximetry 02/04/17 02/04/17 02/04/17 12:45 12:51 13:00 Temperature 98.5 F Pulse Rate 61 63 63 Respiratory 16 19 20 Rate Blood Pressure 147/75 147/75 (mmHg) O2 Sat by Pulse 96 96 96 Oximetry 02/04/17 02/04/17 02/04/17 13:01 13:13 13:15 Temperature Pulse Rate 64 64 Respiratory 22 15 Rate Blood Pressure 126/66 122/58 (mmHg) O2 Sat by Pulse 96 96 96 Oximetry 02/04/17 02/04/17 02/04/17 13:30 13:45 14:00 Temperature Pulse Rate 61 65 68 Respiratory 18 18 20 Rate Blood Pressure 135/68 138/77 (mmHg) O2 Sat by Pulse 96 97 97 Oximetry 02/04/17 02/04/17 02/04/17 14:01 14:15 14:31 Temperature Pulse Rate 69 67 71 Respiratory 13 17 20 Rate Blood Pressure 120/59 135/69 140/69 (mmHg) O2 Sat by Pulse 96 98 97 Oximetry 02/04/17 02/04/17 02/04/17 14:45 15:00 15:01 Temperature Pulse Rate 69 68 68 Respiratory 15 17 11 Rate Blood Pressure 160/74 158/77 (mmHg) O2 Sat by Pulse 97 97 97 Oximetry 02/04/17 02/04/17 02/04/17 15:16 15:31 15:45 Temperature Pulse Rate 67 70 66 Respiratory 17 17 18 Rate Blood Pressure 148/74 127/73 140/64 (mmHg) O2 Sat by Pulse 98 97 98 Oximetry 02/04/17 02/04/17 02/04/17 16:00 16:16 16:31 Temperature Pulse Rate 68 72 68 Respiratory 15 18 13 Rate Blood Pressure 139/69 144/66 162/80 (mmHg) O2 Sat by Pulse 97 97 98 Oximetry 02/04/17 02/04/17 02/04/17 16:46 17:00 17:01 Temperature Pulse Rate 66 72 67 Respiratory 20 16 17 Rate Blood Pressure 163/77 154/81 (mmHg) O2 Sat by Pulse 97 98 98 Oximetry 02/04/17 02/04/17 02/04/17 17:16 17:30 17:46 Temperature Pulse Rate 72 72 70 Respiratory 16 16 20 Rate Blood Pressure 146/71 150/78 152/75 (mmHg) O2 Sat by Pulse 97 98 98 Oximetry 02/04/17 02/04/17 02/04/17 18:00 18:01 18:15 Temperature Pulse Rate 76 73 71 Respiratory 16 18 19 Rate Blood Pressure 148/81 150/81 (mmHg) O2 Sat by Pulse 97 97 96 Oximetry 02/04/17 02/04/17 02/04/17 18:31 18:46 19:00 Temperature Pulse Rate 71 67 67 Respiratory 13 17 12 Rate Blood Pressure 149/86 149/73 (mmHg) O2 Sat by Pulse 96 97 97 Oximetry 02/04/17 02/04/17 02/04/17 19:01 19:15 19:46 Temperature Pulse Rate 69 64 Respiratory 21 15 16 Rate Blood Pressure 125/76 130/64 (mmHg) O2 Sat by Pulse 96 97 Oximetry 02/04/17 02/04/1717 20:00 20:01 20:16 Temperature 98.9 F Pulse Rate 62 62 65 Respiratory 15 17 19 Rate Blood Pressure 139/67 (mmHg) O2 Sat by Pulse 97 97 97 Oximetry 02/04/17 02/04/17 02/04/17 20:18 20:30 20:34 Temperature Pulse Rate 66 66 Respiratory 18 30 19 Rate Blood Pressure 124/66 110/64 (mmHg) O2 Sat by Pulse 97 96 Oximetry 02/04/17 02/04/17 02/04/17 21:00 21:09 21:30 Temperature Pulse Rate 61 60 61 Respiratory 18 17 16 Rate Blood Pressure 129/67 133/62 (mmHg) O2 Sat by Pulse 98 97 96 Oximetry 02/04/17 02/04/17 02/04/17 22:00 22:30 23:00 Temperature Pulse Rate 60 60 61 Respiratory 15 13 21 Rate Blood Pressure 120/61 132/62 (mmHg) O2 Sat by Pulse 98 98 96 Oximetry 02/04/17 02/04/17 02/04/17 23:03 23:09 23:30 Temperature Pulse Rate 60 60 60 Respiratory 16 14 13 Rate Blood Pressure 124/63 125/65 (mmHg) O2 Sat by Pulse 97 97 94 Oximetry 02/05/17 02/05/17 02/05/17 00:00 00:30 00:45 Temperature 98.8 F Pulse Rate 59 72 Respiratory 15 17 20 Rate Blood Pressure 134/60 150/85 (mmHg) O2 Sat by Pulse 98 97 Oximetry 02/05/17 02/05/17 02/05/17 01:00 01:01 02:00 Temperature Pulse Rate 66 69 62 Respiratory 19 15 17 Rate Blood Pressure 163/100 137/69 (mmHg) O2 Sat by Pulse 97 98 96 Oximetry 02/05/17 02/05/17 02/05/17 02:30 03:00 03:29 Temperature Pulse Rate 63 63 Respiratory 17 14 14 Rate Blood Pressure 141/70 141/71 (mmHg) O2 Sat by Pulse 94 95 Oximetry 02/05/17 02/05/17 02/05/17 03:30 04:00 04:30 Temperature Pulse Rate 59 64 62 Respiratory 17 9 13 Rate Blood Pressure 139/64 141/66 135/67 (mmHg) O2 Sat by Pulse 96 96 97 Oximetry 02/05/17 02/05/17 02/05/17 05:00 05:30 06:00 Temperature Pulse Rate 64 65 65 Respiratory 15 14 13 Rate Blood Pressure 135/68 133/70 139/71 (mmHg) O2 Sat by Pulse 97 92 94 Oximetry 02/05/17 02/05/17 02/05/17 06:30 07:00 07:50 Temperature 98.7 F Pulse Rate 66 Respiratory 20 20 Rate Blood Pressure 141/68 (mmHg) O2 Sat by Pulse 96 Oximetry Oxygen Devices in Use Now: Nasal Cannula Appearance: Alert, partly up on ICU bed. In good spirits. Looks comfortable. Eyes: No Scleral Icterus Neck: NL Appearance and Movements; NL JVP, No Thyroid Enlargement, Masses Respiratory: Symmetrical Chest Expansion and Respiratory Effort, Clear to Auscultation, Clear to Percussion Cardiovascular: NL Sounds; No Murmurs; No JVD, RRR, No Edema, - Extremities: No Edema, No Clubbing, Cyanosis, - Skin: No Rash or Ulcers, No Nodules or Sclerosis, - Neurological: Alert and Oriented x 3, NL Sensation Result Diagrams: 02/05/17 07:35 02/05/17 07:05 Additional Lab and Data: Lab Results 02/03/17 02/03/17 02/03/17 Range/Units 21:00 21:00 21:00 WBC 15.2 H (3.5-10.8) 10^3/ul RBC 4.21 (4.0-5.4) 10^6/ul Hgb 12.3 (12.0-16.0) g/dl Hct 37 (35-47) % MCV 88 (80-97) fL MCH 29 (27-31) pg MCHC 33 (31-36) g/dl RDW 14 (10.5-15) % Plt Count 243 (150-450) 10^3/ul MPV 8 (7.4-10.4) um3 Neut % (Auto) 81.8 (38-83) % Lymph % (Auto) 8.9 L (25-47) % [place] % (Auto) 7.1 (1-9) % Eos % (Auto) 1.8 (0-6) % Baso % (Auto) 0.4 (0-2) % Absolute Neuts (auto) 12.4 H (1.5-7.7) 10^3/ul Absolute Lymphs (auto) 1.3 (1.0-4.8) 10^3/ul Absolute Monos (auto) 1.1 H (0-0.8) 10^3/ul Absolute Eos (auto) 0.3 (0-0.6) 10^3/ul Absolute Basos (auto) 0.1 (0-0.2) 10^3/ul Absolute Nucleated RBC 0.02 10^3/ul Nucleated RBC % 0.1 INR (Anticoag Therapy) 0.93 (0.89-1.11) APTT 22.6 L (26.0-36.3) seconds Sodium (133-145) mmol/L Potassium Chloride (101-111) mmol/L Carbon Dioxide (22-32) mmol/L Anion Gap (2-11) mmol/L BUN (6-24) mg/dL Creatinine (0.51-0.95) mg/dL Est GFR ( Amer) (>60) Est GFR (Non-Af Amer) (>60) BUN/Creatinine Ratio (8-20) Glucose (70-100) mg/dL Calcium (8.6-10.3) mg/dL Total Bilirubin (0.2-1.0) mg/dL AST ALT (7-52) U/L Alkaline Phosphatase (34-104) U/L Troponin I (<0.04) ng/mL B-Natriuretic Peptide 69 ( - 100) pg/mL Total Protein (6.4-8.9) g/dL Albumin (3.2-5.2) g/dL Globulin (2-4) g/dL Albumin/Globulin Ratio (1-3) 02/03/17 Range/Units 21:00 WBC (3.5-10.8) 10^3/ul RBC (4.0-5.4) 10^6/ul Hgb (12.0-16.0) g/dl Hct (35-47) % MCV (80-97) fL MCH (27-31) pg MCHC (31-36) g/dl RDW (10.5-15) % Plt Count (150-450) 10^3/ul MPV (7.4-10.4) um3 Neut % (Auto) (38-83) % Lymph % (Auto) (25-47) % [place] % (Auto) (1-9) % Eos % (Auto) (0-6) % Baso % (Auto) (0-2) % Absolute Neuts (auto) (1.5-7.7) 10^3/ul Absolute Lymphs (auto) (1.0-4.8) 10^3/ul Absolute Monos (auto) (0-0.8) 10^3/ul Absolute Eos (auto) (0-0.6) 10^3/ul Absolute Basos (auto) (0-0.2) 10^3/ul Absolute Nucleated RBC 10^3/ul Nucleated RBC % INR (Anticoag Therapy) (0.89-1.11) APTT (26.0-36.3) seconds Sodium 136 (133-145) mmol/L Potassium TNP Chloride 106 (101-111) mmol/L Carbon Dioxide 24 (22-32) mmol/L Anion Gap 6 (2-11) mmol/L BUN 25 H (6-24) mg/dL Creatinine 1.20 H (0.51-0.95) mg/dL Est GFR ( Amer) 60.0 (>60) Est GFR (Non-Af Amer) 46.6 (>60) BUN/Creatinine Ratio 20.8 H (8-20) Glucose 141 H (70-100) mg/dL Calcium 9.2 (8.6-10.3) mg/dL Total Bilirubin 0.50 (0.2-1.0) mg/dL AST TNP ALT 26 (7-52) U/L Alkaline Phosphatase 74 (34-104) U/L Troponin I 0.02 (<0.04) ng/mL B-Natriuretic Peptide ( - 100) pg/mL Total Protein 5.8 L (6.4-8.9) g/dL Albumin 3.2 (3.2-5.2) g/dL Globulin 2.6 (2-4) g/dL Albumin/Globulin Ratio 1.2 (1-3) Assess/Plan/Problems-Billing Ms Cordova is a 56 yo F who has a h/o renal transplant, type II DM, HTN and HLD who presented to the ER with c/o CP. - Patient Problems (1) NSTEMI (non-ST elevated myocardial infarction) Current Visit: Yes Status: Acute Code(s): I21.4 - NON-ST ELEVATION (NSTEMI) MYOCARDIAL INFARCTION SNOMED Code(s): 511639097 Comment: LAD occlusion, stented. Mild cardiomyopathy. Stable. Discharge now. Continue YONY, high-dose statin, ACEI, BB. Fup Dr. Lyle. (2) Renal transplant, status post Current Visit: Yes Status: Acute Code(s): Z94.0 - KIDNEY TRANSPLANT STATUS SNOMED Code(s): 453394625 Comment: Continue her anti-rejection meds. She sees the transplant team once a year. (3) HTN (hypertension) Current Visit: Yes Status: Acute Code(s): I10 - ESSENTIAL (PRIMARY) HYPERTENSION SNOMED Code(s): 25833915 Comment: Continue lisinopril, metoprolol tartrate 12.5mg BID. (4) Type II diabetes mellitus Current Visit: Yes Status: Acute Comment: Fup Dr. Starr. Pt advised that losing weight would be very helpful for her diabetes and heart disease.
[2017-02-05] MEDS: MYCOPHENOLATE MOFETIL 200 MG/ML PO SCH (08:41)
[2017-02-05] MEDS: Tacrolimus CAP(*) 1 MG PO SCH (08:41)
--- NOTE | 2017-02-05 08:49 | PN ---
Progress Note - Progress Note Date of Service: 02/05/17 Note: Time spent on discharge 45 minutes.
[2017-02-05 10:20] VITALS: BP 105/59
[2017-02-05] MEDS ORDERED: Atorvastatin* 80 MG TAB PO SCH (17:00)
--- NOTE | 2017-02-06 00:17 | DS ---
CC: Dr. Starr DISCHARGE SUMMARY: DATE OF ADMISSION: DATE OF DISCHARGE: 02/05/17 HISTORY: This 56-year-old woman presented with chest pain that started in the middle of the night. She never had similar pain before. She was admitted to a monitored bed. Her troponin matheus to a peak of about 16. She went to the cardiac feed mill lab technician. She had complete occlusion of the LAD past the firs t branch, she had stenting of this lesion. She had another 60% lesion as well. Echocardiogram showe d LVEF of 45% to 50%. She did very well following the angioplasty. She had no chest pain or shortness of breath. She will continue on dual-antiplatelet therapy with aspirin and ticagrelor. She will be on high dose atorvastatin 80 mg daily, lisinopril was started at 5 mg daily, metoprolol 12.5 mg b.i.d. These brigitte l be continued. Her antirejection medications will be continued. She will follow up with Dr. Starr for her medical problems including regulation of her diabetes. She was advised that losing weight w ould be very helpful for control of her diabetes and her heart disease. FINAL DIAGNOSES: 1. Non-ST elevation myocardial infarction. 2. Diabetes. 3. Obesity. 4. Hypertension. 5. Status post renal transplant. DISCHARGE MEDICATIONS: 1. Lisinopril 5 mg daily. 2. Metoprolol tartrate 12.5 mg daily b.i.d.. 3. Nitroglycerin 0.4 mg sublingual every 5 minutes p.r.n.. 4. Ticagrelor 90 mg b.i.d. 5. Atorvastatin 80 mg daily at 5 p.m. 6. Aspirin 81 mg daily. 7. Docusate 100 mg daily. 8. Citalopram 30 mg daily. 9. Tacrolimus 1 mg b.i.d. 10. Mycophenolate 250 mg b.i.d. 11. Trimethobenzamide 300 mg daily p.r.n. 12. Montelukast 10 mg daily. 13. Humalog 75/25 forty units h.s. 14. Hydrocodone/acetaminophen 5/500 one every 6 hours p.r.n. 15. Novolin 16 units b.i.d. 16. Multivitamin daily. 17. Ondansetron ODT 4 mg every 8 hours p.r.n. 18. Omeprazole 20 mg daily. 19. Prednisone 5 mg daily. [id number]/[facility] #: [id number]
== END 2017-02-05 11:00 | disposition home or self-care (01) | DRG 174 ==
LOC: ED 20:13 → MEDTELE 23:05 → OBSVTOIN 02-04 08:39 → ICU 02-04 11:30
PROVIDERS: ADMIT Hospitalist; ATTEND Internal Medicine
PROC: B211YZZ Fluoroscopy of Multiple Coronary Arteries using Other Contrast (ICD-10-PCS; principal; 2017-02-04 09:45)
PROC: 027035Z Dilation of Coronary Artery, One Artery with Two Drug-eluting Intraluminal Devices, Percutaneous Approach (ICD-10-PCS; 2017-02-04 09:45)
DX: I21.4 Non-ST elevation (NSTEMI) myocardial infarction (principal); E11.22 Type 2 diabetes mellitus with diabetic chronic kidney disease; Z94.0 Kidney transplant status; F32.9 Major depressive disorder, single episode, unspecified; E78.5 Hyperlipidemia, unspecified; K21.9 Gastro-esophageal reflux disease without esophagitis; F41.9 Anxiety disorder, unspecified; R40.2412 Glasgow coma scale score 13-15, at arrival to emergency department; I25.10 Atherosclerotic heart disease of native coronary artery without angina pectoris; E66.9 Obesity, unspecified; I12.9 Hypertensive chronic kidney disease with stage 1 through stage 4 chronic kidney disease, or unspecified chronic kidney disease; N18.9 Chronic kidney disease, unspecified; Z87.440 Personal history of urinary (tract) infections; Z98.84 Bariatric surgery status; Z90.49 Acquired absence of other specified parts of digestive tract; Z88.1 Allergy status to other antibiotic agents; Z88.5 Allergy status to narcotic agent; Z88.8 Allergy status to other drugs, medicaments and biological substances; Z82.49 Family history of ischemic heart disease and other diseases of the circulatory system; Z83.3 Family history of diabetes mellitus; Z82.3 Family history of stroke; Z84.1 Family history of disorders of kidney and ureter; Z97.4 Presence of external hearing-aid; Z68.35 Body mass index [BMI] 35.0-35.9, adult; Z79.52 Long term (current) use of systemic steroids; Z79.82 Long term (current) use of aspirin; Z79.4 Long term (current) use of insulin
CPT/HCPCS: 36415; 71010; 80048; 80053; 80061; 83880; 84484; 85025; 85610; 85730; 93005; 93306; 93454; 94760; 99156; 99157; A9270-GY; C1725; C1760; C1769; C1876; C1887; C9606-LD; G0378; J1644; J2250; J2270; J3010; J7507; J7512

== ENCOUNTER 2017-05-21 08:38 | Emergency (ER) | payer BC ==
[2017-05-21 09:41] LABS: ABS Basophils 0.1 10^3/ul (0-0.2); ABS Eosinophils 0.2 10^3/ul (0-0.6); ABS Lymphocytes 0.9 10^3/ul (1.0-4.8); ABS Neutrophils 12.3 10^3/ul (1.5-7.7); ABS Nucleated RBC 0 10^3/ul; Eosinophil % 1.2 % (0-6); Hematocrit 38 % (35-47); Hemoglobin 12.2 g/dl (12.0-16.0); Lymphocyte % 6.3 % (25-47); Mean Corpuscular HGB Conc 33 g/dl (31-36); Mean Corpuscular Hemoglobin 29 pg (27-31); Mean Corpuscular Volume 90 fL (80-97); Mean Platelet Volume 9 um3 (7.4-10.4); Nucleated Red Blood Cells % 0; Platelet Count 267 10^3/ul (150-450); Red Blood Count 4.18 10^6/ul (4.0-5.4); Red Cell Distribution Width 15 % (10.5-15); White Blood Count 14.5 10^3/ul (3.5-10.8)
--- NOTE | 2017-05-21 09:46 | RAD ---
indication: Head and neck pain after a syncopal episode and falling in shower COMPARISON: CT of the brain dated February 25, [address] scan of the brain and c-spine was performed without intravenous contrast enhancement. Contiguous axial sections were obtained from the lung apices through the vertex. BRAIN: The ventricles, cisterns and sulci are within normal limits. No significant focal abnormality or mass effect is seen. The brito-white differentiation is adequately maintained. There is no intracranial hemorrhage. No significant bony abnormality is present. The mastoid air cells are appropriately aerated. The visualized paranasal sinuses are clear. C-SPINE: There is straightening of the normal cervical lordosis on the sagittal view images. The vertebral bodies and facet joints are otherwise appropriately aligned. Degenerative changes include loss of intervertebral disc height most severely at C6/C7 where there is sclerotic change and marginal osteophyte formation. There is no acute fracture or dislocation. There is no prevertebral soft tissue swelling. There is no hyperdense material in the cervical canal to indicate hemorrhage. The visualized musculature and soft tissues are normal. There is no gross lymphadenopathy visualized. The visualized portion of the lung apices are clear. IMPRESSION: 1. No calvarial fracture or acute intracranial hemorrhage. 2. Nonspecific straightening of the normal cervical lordosis and degenerative changes without definite fracture or dislocation of the cervical spine.
[2017-05-21 10:01] LABS: EGFR Non-African American 37.8 (>60)
--- NOTE | 2017-05-21 10:24 | RAD ---
INDICATION: Syncope COMPARISON: February 03, 2017 TECHNIQUE: AP seated and lateral views were obtained. FINDINGS: Bones/Soft Tissues: There are no acute bony findings. Cardiomediastinal: The cardiomediastinal silhouette is normal. Lungs: There are no infiltrates. Pleura: There are no pleural effusions. Other: None IMPRESSION: NO ACTIVE DISEASE.
[2017-05-21] MEDS ORDERED: NS 0.9% 1000 ML* 2,000 ML IV ONE (10:36)
[2017-05-21 14:06] VITALS: BP 125/68
--- NOTE | 2017-05-23 12:24 | ED ---
Chucho Hinton Angela, scribed for Hector Borrero MD on 05/21/17 at 0946 . Syncope/Near Syncope - HPI Summary HPI Summary: This pt is a 56 y/o female presenting to [facility] via EMS c/o headache and neck pain s/p syncopal episode this morning. Pt reports that this morning she went to take a shower, she became dizzy and tried to reach the door. She notes she then fell and had LOC with head strike. Pt does not know how long she was unconscious. Pt currently c/o headache and neck pain. She states she was mildly SOB yesterday, not today. Denies chest pain, SOB, hip pain, knee pain. - History Of Current Complaint Chief Complaint: EDSyncope Time Seen by Provider: 05/21/17 08:59 Hx Obtained From: Patient Onset/Duration: Sudden Onset, Still Present Context: Unwitnessed, Loss Of Consciousness Activity At Onset: Other - while taking a shower Associated Head Trauma: Yes Aggravating Factor(s): Nothing Alleviating Factor(s): Spontaneous Resolution Associated Signs And Symptoms: Headache, Other - POS: neck pain. NEG: chest pain , SOB, hip pain, knee pain. - Allergies/Home Medications Allergies/Adverse Reactions: Allergies Allergy/AdvReac Type Severity Reaction Status Date / Time droperidol Allergy Severe dystonic Verified 05/21/17 09:46 reaction prochlorperazine Allergy Severe dystonic Verified 05/21/17 09:49 [From Compazine] reaction fenofibrate [From Tricor] Allergy Unknown Verified 05/21/17 09:50 Reaction Details gentamicin Allergy Rash Verified 05/21/17 09:52 metoclopramide Allergy Anaphylatic Verified 05/21/17 09:48 Shock PMH/Surg Hx/FS Hx/Imm Hx Endocrine/Hematology History: Reports: Hx Diabetes Denies: Hx Thyroid Disease Cardiovascular History: Denies: Hx Hypertension, Hx Pacemaker/ICD Respiratory History: Denies: Hx Asthma, Hx Chronic Obstructive Pulmonary Disease (COPD) GI History: Denies: Hx Ulcer History: Reports: Other Problems/Disorders - Hx kidney transplant Sensory History: Reports: Hx Hearing Aid - WILL REMOVE Denies: Hx Contacts or Glasses Opthamlomology History: Denies: Hx Contacts or Glasses Neurological History: Reports: Other Neuro Impairments/Disorders - neuropathy of feet Psychiatric History: Denies: Hx Panic Disorder - Surgical History Surgery Procedure, Year, and Place: RIGHT KIDNEY TRANSPLANT 1997, APPENDECTOMY, OVARIAN CYST, CHOLECYSTECTOMY, one ovary removed; dialysis grafts Infectious Disease History: No Infectious Disease History: Denies: Hx Clostridium Difficile, Hx Hepatitis, Hx Human Immunodeficiency Virus (HIV), Hx of Known/Suspected MRSA, Hx Shingles, Hx Tuberculosis, Hx Known/ Suspected VRE, Hx Known/Suspected VRSA, History Other Infectious Disease, Traveled Outside the [place] in Last 30 Days - Family History Known Family History: Positive: Cardiac Disease, Diabetes - Social History Alcohol Use: Rare Substance Use Type: Reports: None Smoking Status (MU): Never Smoked Tobacco Review of Systems Negative: Fever, Chills Negative: Chest Pain Negative: Shortness Of Breath Musculoskeletal: Other - neck pain Negative: Other - hip pain, knee pain Positive: Headache, Syncope All Other Systems Reviewed And Are Negative: Yes Physical Exam - Summary Physical Exam Summary: VITAL SIGNS: Reviewed. GENERAL: Patient is a well-developed and nourished female who is lying comfortable in the stretcher. Patient is not in any acute respiratory distress. HEAD AND FACE: No signs of trauma. No ecchymosis, hematomas or skull depressions. No sinus tenderness. EYES: PERRLA, EOMI x 2, No injected conjunctiva, no nystagmus. EARS: Hearing grossly intact. Ear canals and tympanic membranes are within normal limits. MOUTH: Oropharynx within normal limits. NECK: Supple, trachea is midline, no adenopathy, no JVD, no carotid bruit. There is c-spine tenderness. Pt has c-collar on. CHEST: Symmetric, no tenderness at palpation LUNGS: Clear to auscultation bilaterally. No wheezing or crackles. CVS: Regular rate and rhythm, S1 and S2 present, no murmurs or gallops appreciated. ABDOMEN: Soft, non-tender. No signs of distention. No rebound no guarding, and no masses palpated. Bowel sounds are normal. EXTREMITIES: FROM in all major joints, no edema, no cyanosis or clubbing. NEURO: Alert and oriented x 3. No acute neurological deficits. Speech is normal and follows commands. SKIN: Dry and warm GCS: 15 Triage Information Reviewed: Yes Vital Signs On Initial Exam: Initial Vitals Temp Pulse Resp BP Pulse Ox 97.9 F 54 15 108/55 92 05/21/17 08:48 05/21/17 08:48 05/21/17 08:48 05/21/17 08:48 05/21/17 08:48 Vital Signs Reviewed: Yes - Felipa Coma Scale Best Eye Response: 4 - Spontaneous Best Motor Response: 6 - Obeys Commands Best Verbal Response: 5 - Oriented Coma Scale Total: 15 Diagnostics - Vital Signs Vital Signs Temp Pulse Resp BP Pulse Ox 05/21/17 08:48 97.9 F 54 15 108/55 92 - Laboratory Lab Results: Lab Results 05/21/17 Range/Units 09:30 WBC 14.5 H (3.5-10.8) 10^3/ul RBC 4.18 (4.0-5.4) 10^6/ul Hgb 12.2 (12.0-16.0) g/dl Hct 38 (35-47) % MCV 90 (80-97) fL MCH 29 (27-31) pg MCHC 33 (31-36) g/dl RDW 15 (10.5-15) % Plt Count 267 (150-450) 10^3/ul MPV 9 (7.4-10.4) um3 Neut % (Auto) 85.1 H (38-83) % Lymph % (Auto) 6.3 L (25-47) % [place] % (Auto) 6.9 (0-7) % Eos % (Auto) 1.2 (0-6) % Baso % (Auto) 0.5 (0-2) % Absolute Neuts (auto) 12.3 H (1.5-7.7) 10^3/ul Absolute Lymphs (auto) 0.9 L (1.0-4.8) 10^3/ul Absolute Monos (auto) 1.0 H (0-0.8) 10^3/ul Absolute Eos (auto) 0.2 (0-0.6) 10^3/ul Absolute Basos (auto) 0.1 (0-0.2) 10^3/ul Absolute Nucleated RBC 0 10^3/ul Nucleated RBC % 0 Result Diagrams: 05/21/17 09:30 05/21/17 09:30 Lab Statement: Any lab studies that have been ordered have been reviewed, and results considered in the medical decision making process. - Radiology Chest XR Xray Interpretation: No Acute Changes - IMPRESSION: No active disease. Dr. Borrero has reviewed this radiology report. Radiology Interpretation Completed By: Radiologist - CT Brain CT CT Interpretation: No Acute Changes - IMPRESSION: 1. No calvarial fracture or acute intracranial hemorrhage. 2. Nonspecific straightening of the normal cervical lordosis and degenerative changes without definite fracture or dislocation of the cervical spine. Dr. Borrero has reviewed this radiology report. CT Interpretation Completed By: Radiologist Cervical spine CT CT Interpretation: No Acute Changes - IMPRESSION: 1. No calvarial fracture or acute intracranial hemorrhage. 2. Nonspecific straightening of the normal cervical lordosis and degenerative changes without definite fracture or dislocation of the cervical spine. Dr. Borrero has reviewed this radiology report. CT Interpretation Completed By: Radiologist - EKG 09:32 Cardiac Rate: Bradycardia EKG Rhythm: Sinus Bradycardia - at 52 bpm EKG Interpretation: No ST elevation EKG Comparison: No Significant Change - similar to prior EKG on 02/05/17. Course/Dx Assessment/Plan: This pt is a 56 y/o female presenting to [facility] via EMS c/o headache and neck pain s/p syncopal episode this morning. Pt reports that this morning she went to take a shower, she became dizzy and tried to reach the door. She notes she then fell and had LOC with head strike. Pt does not know how long she was unconscious. Pt currently c/o headache and neck pain. She states she was mildly SOB yesterday, not today. Denies chest pain, SOB, hip pain , knee pain. Test results without any significant abnormalities except for WBC of 14.5, potassium of 5.3, creatinine of 1.44, glucose of 294, BNP of 129. Chest XR shows no active disease. Brain CT and cervical spine CT reveal 1. No calvarial fracture or acute intracranial hemorrhage. 2. Nonspecific straightening of the normal cervical lordosis and degenerative changes without definite fracture or dislocation of the cervical spine. Dr. Lyle came to the ED and assessed the pt. He reports the pt does not need to be admitted for further cardiac or syncope work up. In the ED course, the pt was given IV fluids and she is now feeling better. Therefore, the pt will be discharged to home with follow up from her PCP and tank tester. She is instructed to return to the ED for any worsening or new symptoms. Pt is hemodynamically stable, alert and oriented x3. - Diagnoses Provider Diagnoses: Vasovagal syncope, Dehydration Discharge - Discharge Plan Condition: Stable Disposition: HOME Patient Education Materials: Dehydration (ED), Syncope (ED) Referrals: Krunal Starr MD [Primary Care Provider] - 3 Days Additional Instructions: Please follow up with your primary care provider. RETURN TO THE ED FOR ANY WORSENING SYMPTOMS. The documentation as recorded by the Chucho camacho Angela accurately reflects the service I personally performed and the decisions made by Adair givens Walter, MD.
== END 2017-05-21 12:45 | disposition home or self-care (01) ==
LOC: ED 08:38
DX: R55 Syncope and collapse (principal); E86.0 Dehydration; R51 Headache
CPT/HCPCS: 36415; 70450; 71046; 72125; 80053; 80320; 83605; 83880; 84443; 84484; 85025; 93005; 99282; G0480

== ENCOUNTER 2017-05-31 16:39 | Emergency (ER) | payer BC ==
--- OUTSIDE RECORDS SUMMARY | 2017-05-31 16:49 | XMS REPORT ---
:1960 External Reference #:[id number] Author Organization [email or web address] Address [address] [address] Phone [phone] Care Team Providers Name Role Phone Krunal Starr MD Primary Care Physician Unavailable Payers Type Date Identification Numbers Payment Provider Subscriber Commercial Policy Number: [id number] [facility] Dontae Cordova PayID: [id number] [address] [place] [address] Medigap Part B Expires: 2017 Policy Number: Medicare Kinjal Cordova [id number] PayID: [id number] [address] [place] [address] Problems Description No Information Family History Date Family Member(s) Problem(s) Comments Father [place] Father Stroke Mother due to Renal Failure () Mother due to Sepsis () Siblings 3 brother waiting for kidney transplant, and 1 sister with kidney transplant Social History Type Date Description Comments Marital Status Lives With 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 [employer] Cigarette Use Never Smoked Cigarettes ETOH Use Occasionally consumes alcohol Smoking Patient has never smoked Recreational Drug Use Denies Drug Use Daily Caffeine Consumes on average 4 cups of decaff coffee per day Exercise Type/Frequency Does not exercise Allergies, Adverse Reactions, Alerts Date Description Reaction Status Severity Comments 02/12/2017 Droperidol / Fentanyl active 02/12/2017 Compazine active 02/12/2017 Reglan difficulty breathing active 05/31/2017 Fenofibrate active Medications Medication Date Status Form Strength Qnty SIG Indications Ordering Provider Lisinopril 02/05 Active Tablets 5mg 1 by mouth every day Fiona Lyle M.D. Metoprolol 02/05 Active Tablets 25mg 1/2 tablet Everett Tartrate by mouth Fiona Lyle, twice a M.D. day Brilinta 02/05 Active Tablets 90mg 60tab 1 tab by Pedro Pang /2016 s mouth Sodums, twice a MD, FAC, day FSCAI Atorvastatin 02/05 Active Tablets 80mg 90tab 1 by mouth Everett Calcium s every day Fiona Lyle, ( taken at M.D. bedtime) Aspirin Adult Low 02/[address] 81mg 100ta 1 by mouth Everett Dose /2016 bs every day Fiona Lyle, ( take Am) M.D. Nitrostat Active Tablets Sub 0.4mg one sl Unknown /0000 q5min up to 3 doses as needed Docusate Sodium Active Capsules 100mg 1 cap at Unknown /0000 bedtime Citalopram Active Tablets 10mg 3 tablet Unknown Hydrobromide /0000 po daily (Taken 8 Am) Tacrolimus Active Capsules 1mg twice Unknown /0000 daily Mycophenolate Active Capsules 250mg take twice Unknown Mofetil /0000 daily Trimethobenzamide Active Capsules 300mg as needed Unknown HCL /0000 Montelukast Active Tablets 10mg 1 by mouth Unknown Sodium /0000 every day Humalog Mix 75/25 Active Suspension (75-25)10 40 units Unknown /0000 0Unit/ML at hs Hydrocodone-Aceta Active Tablets 5-500mg 1 by mouth Unknown minophen /0000 every 8 hours as needed Novolin R Active Solution 100Unit/M 10 units Unknown /0000 L twice daily Multivitamin Active Chewtabs once a day Unknown Adult /0000 Ondansetron HCL Active Tablets 4mg one by Unknown /0000 mouth every 8 hours as needed for nausea Prednisone Active Tablets 5mg 1 by mouth Unknown /0000 every other day, (even days). T24-Mcmeba Active Chewtabs 1mg take one Unknown /0000 capsule/ta blet daily sublingual ly Citracal Calcium Active Chewtabs 250-115-2 2 chew Unknown Gummies /0000 50mg-mg-U gummies nit twice daily Zantac OTC Active 150mg 1 by mouth Unknown /0000 twice per day as needed ( taken 1 tablet at bedtime starting 05/13/17) Omeprazole Active Capsules DR 40mg Take One Unknown /0000 Capsule By Mouth Every Day ( taken Am) Alprazolam ER 00 Active Tablets ER 1mg Take 1 Unknown /0000 24HR Tablet By Mouth Every Day ( taken Am) Alprazolam Active Tablets 0.5mg Take 1 Or Unknown /0000 2 Tablets By Mouth Every Night Before Bed as Needed MDD 2 ( taken a tbedtime PM) Citalopram Hx Tablets 20mg 1 by mouth Unknown Hydrobromide /0000 every day - plus 10 mg 05/30 to make mg total Omeprazole Hx Capsules DR 20mg 1 by mouth Unknown /0000 every day - 05/30 Vital Signs Date Vital Result Comment 05/31/2017 Height 65 inches 5'5" Weight 207.50 lb Heart Rate 65 /min BP Systolic Sitting 130 mmHg BP Diastolic Sitting 60 mmHg BP Systolic Standing 125 mmHg BP Diastolic Standing 60 mmHg Respiratory Rate 16 /min BMI (Body Mass Index) 34.5 kg/m2 Ejection Fraction 55-60% 04/12/2017 04/17/2017 Height 65 inches 5'5" Weight 212.00 lb Heart Rate 60 /min BP Systolic Sitting 112 mmHg Rue large cuff BP Diastolic Sitting 72 mmHg Rue large cuff BP Systolic Standing 102 mmHg Rue BP Diastolic Standing 66 mmHg Rue Respiratory Rate 16 /min BMI (Body Mass Index) 35.3 kg/m2 Ejection Fraction 55-60% 04/12/17 02/12/2017 Height 65 inches 5'5" Weight 217.00 lb w/ shoes Heart Rate 60 /min 55 on home BP machine BP Systolic 99 mmHg home BP machine BP Diastolic 59 mmHg home BP machine BP Systolic Sitting 104 mmHg BP Diastolic Sitting 62 mmHg Respiratory Rate 18 /min BMI (Body Mass Index) 36.1 kg/m2 Ejection Fraction 45-50% echo 02/04/17 Results Description No Information Procedures Date CPT Code Description Status 05/31/2017 11206 EKG Tracing & Interpretation Completed 05/21/2017 69123 Treadmill Interp/Report Only Completed 05/21/2017 13885 Stress Test Supervsn W/Out I/R Completed 04/12/2017 95768 ECHO Transthoracic, Real-Time 2D With Doppler And Color Completed Flow 04/12/2017 80565 ECHO Transthoracic, Real-Time 2D With Doppler And Color Completed Flow 02/12/2017 08819 EKG Tracing & Interpretation Completed 02/05/2017 73240 EKG, Interpretation Only Completed 02/04/2017 92980 Cath PLMT&NJX L Ventriculog Img S&I Completed 02/04/2017 76764 ECHO Transthorasic Realtime 2D W Doppler & Color Completed Flow Hosp 02/04/2017 53652 EKG, Interpretation Only Completed 02/04/2017 87414 Revascularization Acute Total/Subtotal Occlusion Completed 11/20/2007 98952 EKG, Interpretation Only Completed 11/20/2007 59865 EKG, Interpretation Only Completed Encounters Type Date Location Provider CPT E/M Dx Office Visit 05/31/2017 [facility] Laureano Lyle, 09553 R94.31 3:45p Cordelia Finn I25.10 Z94.0 Office Visit 04/17/2017 1:30p [facility] Laureano Lyle, 76853 R94.31 Cordelia Finn I25.10 I42.9 Office Visit 02/12/2017 1:30p [facility] Laureano Lyle, 33780 I21.4 Cordelia Valera [facility] [place] R94.31 I25.10 Z94.0 Office Visit 02/05/2017 9:53a [facility] Bernard Fernandez, 71884 S72.001A ,gui Hospitaliona Finn D62 J11.1 E87.1 Office Visit 02/05/2017 2:37p [facility] Laureano Lyle, 15499 I21.4 Cordelia Finn I25.10 Office Visit 02/04/2017 9:52a [facility] ,gui Guzman, 98028 I21.4 Hospitaliona Finn E11.9 Z79.4 Z94.0 Office Visit 02/04/2017 11:27a [facility] Laureano Lyle, 36063 I21.4 Cordelia Finn R94.31 R07.9 I25.10 Office Visit 02/03/2017 9:52a [facility] ,gui Motley, N.P. 85393 R07.9 Hospitalists E11.9 Z79.4 Z94.0 Plan of Care 05/31/2017 - Everett Lyle M.D.R94.31 Abnormal electrocardiogram [ECG] [EKG] Follow up:6 monthsRecommendations:Ok to return to Cardiac vylhkV20.10 [facility] [place] coronary artery w/o ang gakmxW93.0 Kidney transplant status
[2017-05-31 17:35] VITALS: BP 126/73
--- NOTE | 2017-05-31 18:18 | RAD ---
HISTORY: Subacute trauma, right hip and femur pain COMPARISONS: None VIEWS: 7, Frontal view of the pelvis with frontal and frog-leg views of the right hip with frontal and lateral views of the right femur FINDINGS: BONE DENSITY: Normal. BONES: There is no displaced fracture. JOINTS: There is mild osteoporosis of the right knee. ALIGNMENT: There is no dislocation. SOFT TISSUES: There is peripheral arterial calcification. A calcified uterine fibroid is noted in the pelvis. OTHER FINDINGS: None. IMPRESSION: 1. NO ACUTE OSSEOUS INJURY. 2. PERIPHERAL ARTERIAL DISEASE. 3. IF SYMPTOMS PERSIST, RECOMMEND REPEAT IMAGING.
--- NOTE | 2017-05-31 21:36 | UC ---
Paul Hinton Nikita, scribed for Hector Borrero MD on 05/31/17 at 1752 . Hip/Pelvis Pain - HPI Summary HPI Summary: This patient is a 56 year old F presenting to [facility] with a chief complaint of R hip and R leg pain since 05/21/17 s/p fall while taking a shower. The patient went to the ED where she had a CT of the head and neck CT. The pain was not severe then but has not relieved since. The patient rates the pain 8/10 in severity when she tries to get up from a chair, but is otherwise a 4/10 at baseline. Symptoms aggravated by getting up from a chair. Symptoms alleviated by nothing. Patient denies dizziness, CP, SOB, and palpitations. - History Of Current Complaint Chief Complaint: UCLowerExtremity Stated Complaint: LEG AND HIP INJURIES FROM FALL Time Seen by Provider: 05/31/17 17:38 Hx Obtained From: Patient Onset/Duration: Sudden Onset, Lasting Weeks, Still Present Severity Initially: Moderate Severity Currently: Moderate Pain Intensity: 4 Pain Scale Used: 0-10 Numeric Location: Discrete At: - R hip and R leg pain Aggravating Factor(s): Movement - sitting up from a chair (goes from 4/10 to 8/ 10 in severity) Alleviating Factor(s): Nothing Associated Signs And Symptoms: Positive: Other - Patient denies dizziness, CP, SOB, and palpitations. - Allergies/Home Medications Allergies/Adverse Reactions: Allergies Allergy/AdvReac Type Severity Reaction Status Date / Time droperidol Allergy Severe dystonic Verified 05/31/17 17:35 reaction prochlorperazine Allergy Severe dystonic Verified 05/31/17 17:35 [From Compazine] reaction fenofibrate [From Tricor] Allergy Unknown Verified 05/31/17 17:35 Reaction Details gentamicin Allergy Rash Verified 05/31/17 17:35 metoclopramide Allergy Anaphylatic Verified 05/31/17 17:35 Shock PMH/Surg Hx/FS Hx/Imm Hx Endocrine History: Diabetes Cardiovascular History: Cardiac Disease, Other Other Cardiovascular History: No HTN Neurological History: Other Other Neurological History: neuropathy - Surgical History Surgical History: Yes Surgery Procedure, Year, and Place: RIGHT KIDNEY TRANSPLANT 1997, APPENDECTOMY, OVARIAN CYST, CHOLECYSTECTOMY, one ovary removed; dialysis grafts - Family History Known Family History: Positive: Cardiac Disease, Diabetes - Social History Alcohol Use: Rare Substance Use Type: None Smoking Status (MU): Never Smoked Tobacco - Immunization History Most Recent Influenza Vaccination: fall 2016 Most Recent Pneumonia Vaccination: 2016 Review of Systems Respiratory: Other - denies SOB Cardiovascular: Other - denies CP and palpitations Musculoskeletal: Other: - R hip and R leg pain Neurological: Other - denies dizziness All Other Systems Reviewed And Are Negative: Yes Physical Exam - Summary Physical Exam Summary: VITAL SIGNS: Reviewed. GENERAL: ~Patient is a well-developed and nourished FEMALE who is lying comfortable in the stretcher. ~Patient is not in any acute respiratory distress. HEAD AND FACE: Normocephalic EYES: PERRLA, EOMI x 2. EARS: Hearing grossly intact. MOUTH: Oropharynx within normal limits. NECK: Supple, trachea is midline, no adenopathy, no JVD, no carotid bruit. CHEST: Symmetric, no tenderness at palpation LUNGS: Clear to auscultation bilaterally. No wheezing or crackles. CVS: Regular rate and rhythm, S1 and S2 present, no murmurs or gallops appreciated. ABDOMEN: Soft, non-tender. Bowel sounds are normal. No abdominal abnormal pulsations. EXTREMITIES: Full ROM in all major joints, no edema, no cyanosis or clubbing. Point tenderness in the R hip. NEURO: Alert and oriented x 3. No acute neurological deficits. Speech is normal and follows commands. SKIN: Dry and warm Triage Information Reviewed: Yes Vital Signs: Initial Vital Signs Temp 98.4 F 05/31/17 17:31 Pulse 58 05/31/17 17:31 Resp 18 05/31/17 17:31 BP 126/73 05/31/17 17:31 Pulse Ox 99 05/31/17 17:31 Diagnostics - Radiology Hip/Pelvis XR Radiology Interpretation Completed By: Radiologist - 1. NO ACUTE OSSEOUS INJURY. 2. PERIPHERAL ARTERIAL DISEASE. 3. IF SYMPTOMS PERSIST, RECOMMEND REPEAT IMAGING. [facility] physician has reviewed this radiology report. Femur XR Radiology Interpretation Completed By: Radiologist - 1. NO ACUTE OSSEOUS INJURY. 2. PERIPHERAL ARTERIAL DISEASE. 3. IF SYMPTOMS PERSIST, RECOMMEND REPEAT IMAGING. [facility] physician has reviewed this radiology report. Re-Evaluation - Re-Evaluation First Eval Re-Evaluation Time: 18:24 Comment: Discussed discharge plan with the patient. Hip Injury Course/Dx - Course Course Of Treatment: Hip/Pelvis XR reveals 1. NO ACUTE OSSEOUS INJURY. 2. PERIPHERAL ARTERIAL DISEASE. 3. IF SYMPTOMS PERSIST, RECOMMEND REPEAT IMAGING. Femur XR reveals 1. NO ACUTE OSSEOUS INJURY. 2. PERIPHERAL ARTERIAL DISEASE. 3. IF SYMPTOMS PERSIST, RECOMMEND REPEAT IMAGING. I discussed all the findings and test results with the patient. Patient was instructed to return to the urgent care or go to ER immediately if any of the symptoms return or worsens. Plan of care was discussed with the patient, and patient understands and agrees. All questions were answered to patient satisfaction. There were no further complaints or concerns. - Differential Dx/Diagnosis Differential Diagnosis/HQI/PQRI: Other - hip pain Provider Diagnoses: hip pain Discharge - Sign-Out/Discharge Documenting (check all that apply): Discharge - Discharge Plan Condition: Stable Disposition: HOME Prescriptions: Hydrocodone/Acetaminophen [[place] 5-325 Tablet] 1 each PO Q6H PRN #12 tablet MDD 4 PRN Reason: Pain Patient Education Materials: Arthralgia (ED), Hip Pain (ED) Referrals: Krunal Starr MD [Primary Care Provider] - Additional Instructions: Take medications as instructed Increase your fluid intake Return to the if symptoms worsen RETURN TO URGENT CARE OR THE ED FOR ANY WORSENING OR NEW SYMPTOMS. - Billing Disposition and Condition Condition: STABLE Disposition: HOME The documentation as recorded by the Paul camacho Nikita accurately reflects the service I personally performed and the decisions made by me, Hector Borrero MD.
== END 2017-05-31 18:30 | disposition home or self-care (01) ==
LOC: UCEAST 16:39
DX: M25.551 Pain in right hip (principal); I73.9 Peripheral vascular disease, unspecified; E11.9 Type 2 diabetes mellitus without complications; Z79.4 Long term (current) use of insulin; I25.10 Atherosclerotic heart disease of native coronary artery without angina pectoris; Z94.0 Kidney transplant status; Z90.49 Acquired absence of other specified parts of digestive tract; Z90.721 Acquired absence of ovaries, unilateral
CPT/HCPCS: 99212; G0463

== ENCOUNTER 2017-08-14 15:31 | Emergency (ER) | payer BC ==
[2017-08-14 16:25] VITALS: BP 118/54
--- NOTE | 2017-08-14 17:34 | RAD ---
Indication: Left toe injury. 3 views of left great toe demonstrates no fracture. No other bone or joint abnormality is identified. IMPRESSION: No fracture of the left great toe is noted.
--- NOTE | 2017-08-14 18:00 | UC ---
Lower Extremity/Ankle HPI - HPI Summary HPI Summary: Patient tripped over a rug last night and caught her left great toe. Now has pain, swelling and bruising. Able to weight-bear but with discomfort. - History of Current Complaint Chief Complaint: UCLowerExtremity Stated Complaint: LEFT BIG TOE INJURY Time Seen by Provider: 08/14/17 17:32 Hx Obtained From: Patient Onset/Duration: Sudden Onset, Lasting Hours Severity Initially: Moderate Severity Currently: Moderate Pain Intensity: 7 Pain Scale Used: 0-10 Numeric Aggravating Factor(s): Standing, Ambulation Alleviating Factor(s): Rest Able to Bear Weight: Yes - Allergies/Home Medications Allergies/Adverse Reactions: Allergies Allergy/AdvReac Type Severity Reaction Status Date / Time droperidol Allergy Severe dystonic Verified 08/14/17 16:12 reaction prochlorperazine Allergy Severe dystonic Verified 08/14/17 16:12 [From Compazine] reaction fenofibrate [From Tricor] Allergy Difficulty Verified 08/14/17 16:12 Breathing gentamicin Allergy Rash Verified 08/14/17 16:12 metoclopramide Allergy Anaphylatic Verified 08/14/17 16:12 Shock PMH/Surg Hx/FS Hx/Imm Hx Endocrine History: Diabetes Cardiovascular History: Cardiac Disease, Hypertension GI/ History: Renal Disease - Surgical History Surgical History: Yes Surgery Procedure, Year, and Place: RIGHT KIDNEY TRANSPLANT 1997, APPENDECTOMY, OVARIAN CYST, CHOLECYSTECTOMY, one ovary removed; dialysis grafts. Stent placement x2 01/2017 - Family History Known Family History: Positive: Cardiac Disease, Diabetes - Social History Alcohol Use: Occasionally Substance Use Type: None Smoking Status (MU): Never Smoked Tobacco - Immunization History Most Recent Influenza Vaccination: fall 2016 Most Recent Pneumonia Vaccination: 2016 Review of Systems Constitutional: Negative Skin: Bruising Respiratory: Negative Cardiovascular: Negative Gastrointestinal: Negative Musculoskeletal: Arthralgia, Decreased ROM, Edema All Other Systems Reviewed And Are Negative: Yes Physical Exam Triage Information Reviewed: Yes Appearance: Well-Appearing, No Pain Distress, Well-Nourished Vital Signs: Initial Vital Signs Temp 98.4 F 08/14/17 16:18 Pulse 53 08/14/17 16:18 Resp 18 08/14/17 16:18 BP 118/54 08/14/17 16:18 Pulse Ox 98 08/14/17 16:18 Vital Signs Reviewed: Yes Eyes: Positive: Conjunctiva Clear ENT: Positive: Hearing grossly normal Neck: Positive: Supple Respiratory: Positive: No respiratory distress, No accessory muscle use Cardiovascular: Positive: Pulses Normal Abdomen Description: Positive: Soft Musculoskeletal: Positive: ROM Limited @ - LEFT GREAT TOE, Edema @, Other: - TTP LEFT GREAT TOE Neurological: Positive: Alert Psychological: Positive: Normal Response To Family, Age Appropriate Behavior Skin: Positive: Other - BRUISING LEFT GREAT TOE Diagnostics - Radiology LEFT GREAT TOE XRAY Xray Interpretation: No Acute Changes Radiology Interpretation Completed By: Radiologist Lower Extremity Course/Dx - Differential Dx/Diagnosis Provider Diagnoses: LEFT GREAT TOE SPRAIN Discharge - Sign-Out/Discharge Documenting (check all that apply): Discharge/Admit/Transfer - Discharge Plan Condition: Stable Disposition: HOME Prescriptions: HYDROcodone/ACETAMIN 5-325 MG* [[place] 5-325 TAB*] 1 tab PO Q6H PRN #12 tab MDD 4 PRN Reason: Pain Patient Education Materials: Sprain (ED) Referrals: Krunal Starr MD [Primary Care Provider] - If Needed Additional Instructions: TOE X-RAY TODAY UNREMARKABLE FOR FRACTURE OR DISLOCATION. WEAR WIDE PROTECTIVE SANDALS TO AVOID REPEAT TRAUMA. REST, ICE, ELEVATE. TYLENOL NEEDED FOR DISCOMFORT. HYDROCODONE FOR BREAKTHROUGH. YOUR SYMPTOMS SHOULD IMPROVE SIGNIFICANTLY OVER THE NEXT 1-2 WEEKS. IF YOU DO NOT IMPROVE EXPECTED FOLLOW-UP WITH YOUR PCP. YOU MAY BENEFIT FROM REPEAT IMAGING AT THAT TIME - Billing Disposition and Condition Condition: STABLE Disposition: Home
== END 2017-08-14 18:00 | disposition home or self-care (01) ==
LOC: UCEAST 15:31
DX: S93.502A Unspecified sprain of left great toe, initial encounter (principal); W22.8XXA Striking against or struck by other objects, initial encounter; Y93.9 Activity, unspecified; Y92.9 Unspecified place or not applicable; E11.9 Type 2 diabetes mellitus without complications; Z79.4 Long term (current) use of insulin; I25.10 Atherosclerotic heart disease of native coronary artery without angina pectoris; I10 Essential (primary) hypertension; N28.9 Disorder of kidney and ureter, unspecified; Z94.0 Kidney transplant status; Z90.89 Acquired absence of other organs; Z90.49 Acquired absence of other specified parts of digestive tract; Z90.721 Acquired absence of ovaries, unilateral; Z88.8 Allergy status to other drugs, medicaments and biological substances; Z82.49 Family history of ischemic heart disease and other diseases of the circulatory system; Z83.3 Family history of diabetes mellitus
CPT/HCPCS: 99212; G0463

== ENCOUNTER 2018-01-31 12:21 | Emergency (ER) | payer BC, OTHER ==
[2018-01-31 12:43] VITALS: BP 133/72
--- NOTE | 2018-01-31 13:10 | UC ---
Complaint Female HPI - HPI Summary HPI Summary: Woman comes in with a chief complaint of urinary frequency and urgency. Been going on for 2 days. This reminds her of urinary tract infection. No fevers or chills no abdominal pain. - History Of Current Complaint Chief Complaint: UCGU Stated Complaint: URINARY COMPLAINT Time Seen by Provider: 01/31/18 13:02 Pain Intensity: 6 - Allergies/Home Medications Allergies/Adverse Reactions: Allergies Allergy/AdvReac Type Severity Reaction Status Date / Time droperidol Allergy Severe dystonic Verified 01/31/18 12:43 reaction prochlorperazine Allergy Severe dystonic Verified 01/31/18 12:43 [From Compazine] reaction fenofibrate [From Tricor] Allergy Difficulty Verified 01/31/18 12:43 Breathing gentamicin Allergy Rash Verified 01/31/18 12:43 metoclopramide Allergy Anaphylatic Verified 01/31/18 12:43 Shock PMH/Surg Hx/FS Hx/Imm Hx Cardiovascular History: Hypertension, Myocardial Infarction - Surgical History Surgical History: Yes Surgery Procedure, Year, and Place: RIGHT KIDNEY TRANSPLANT 1997, APPENDECTOMY, OVARIAN CYST, CHOLECYSTECTOMY, one ovary removed; dialysis grafts. Stent placement x2 01/2017 - Family History Known Family History: Positive: Cardiac Disease, Diabetes - Social History Alcohol Use: Occasionally Substance Use Type: None Smoking Status (MU): Never Smoked Tobacco - Immunization History Most Recent Influenza Vaccination: fall 2016 Most Recent Pneumonia Vaccination: 2015 Review of Systems All Other Systems Reviewed And Are Negative: Yes Constitutional: Positive: Negative Skin: Positive: Negative Eyes: Positive: Negative ENT: Positive: Negative Respiratory: Positive: Negative Cardiovascular: Positive: Negative Gastrointestinal: Positive: Negative Genitourinary: Positive: Dysuria, Frequency, Urgency Motor: Positive: Negative Neurovascular: Positive: Negative Musculoskeletal: Positive: Negative Neurological: Positive: Negative Psychological: Positive: Negative Is Patient Immunocompromised?: Yes Physical Exam Triage Information Reviewed: Yes Appearance: Well-Appearing, No Pain Distress, Well-Nourished Vital Signs: Initial Vital Signs Temp 98.1 F 01/31/18 12:39 Pulse 95 01/31/18 12:39 Resp 18 01/31/18 12:39 BP 133/72 01/31/18 12:39 Pulse Ox 100 01/31/18 12:39 Vital Signs Reviewed: Yes Eye Exam: Normal Eyes: Positive: Conjunctiva Clear Neck: Positive: Supple Respiratory: Positive: Lungs clear, Normal breath sounds, No respiratory distress Cardiovascular: Positive: RRR Abdomen Description: Positive: Nontender, Soft. Negative: CVA Tenderness (R), CVA Tenderness (L) Musculoskeletal Exam: Normal Musculoskeletal: Positive: Strength Intact, ROM Intact Neurological Exam: Normal Neurological: Positive: Alert, Muscle Tone Normal Psychological Exam: Normal Psychological: Positive: Age Appropriate Behavior Skin Exam: Normal Complaint Female Dx - Differential Dx/Diagnosis Provider Diagnoses: UTI Discharge - Sign-Out/Discharge Documenting (check all that apply): Patient Departure All imaging exams completed and their final reports reviewed: No Studies - Discharge Plan Condition: Stable Disposition: HOME Prescriptions: Sulfamethox/Trimethoprim DS* [Bactrim DS 800/160 TAB*] 1 tab PO BID #14 tab Patient Education Materials: Urinary Tract Infection in Women (ED) Referrals: Krunal Starr MD [Primary Care Provider] - Additional Instructions: FOLLOW UP WITH YOUR DOCTOR IF NOT COMPLETELY IMPROVED. GET RECHECKED FOR ANY WORSENING OF YOUR CONDITION OR QUESTIONS OR CONCERNS. - Billing Disposition and Condition Condition: STABLE Disposition: Home
== END 2018-01-31 13:13 | disposition home or self-care (01) ==
LOC: UCEAST 12:21
DX: N39.0 Urinary tract infection, site not specified (principal); A49.9 Bacterial infection, unspecified; Z88.0 Allergy status to penicillin; Z88.8 Allergy status to other drugs, medicaments and biological substances; Z94.0 Kidney transplant status; I25.2 Old myocardial infarction
CPT/HCPCS: 81003; 87077; 87086; 87186; 99212; G0463

== ENCOUNTER 2018-06-23 13:22 | Emergency (ER) | payer BC, OTHER ==
[2018-06-23] MEDS ORDERED: oxyCODONE/Acetamin 5/325 MG* TAB PO ONE (13:24)
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
--- OUTSIDE RECORDS SUMMARY | 2018-06-23 13:55 | XMS REPORT | Continuity of Care Document ---
:1960 External Reference #:[id number] Author Name Linda Morgan Care Team Providers Name Role Phone Krunal Starr MD Primary Care Physician Unavailable Payers Date Identification Numbers Payment Provider Subscriber Policy Number: [id number] [facility] Kinjal Cordova PayID: [id number] [address] [place] [address] Expires: 2017 Policy Number: [id number] Medicare Kinjal Cordova PayID: [id number] [address] [place] [address] Advance Directives Description No Information Available Problems Description No Information Family History Date Family Member(s) Observation Comments Father [place] Father Stroke Mother due to Renal Failure () Mother due to Sepsis () Siblings 3 brother waiting for kidney transplant, and 1 sister with kidney transplant Social History Type Date Description Comments Sex Unknown Marital Status Lives With 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 [employer] Tobacco Use Start: Unknown Never Smoked Cigarettes Smoking Status Reviewed: 06/04/18 Never Smoked Cigarettes ETOH Use Occasionally consumes alcohol Tobacco Use Start: Unknown Patient has never smoked Recreational Drug Use Denies Drug Use Exercise Type/Frequency Does not exercise Allergies, Adverse Reactions, Alerts Date Description Reaction Status Severity Comments 02/12/2017 Droperidol / Fentanyl Active 02/12/2017 Compazine Active 02/12/2017 Reglan difficulty breathing Active 05/31/2017 Fenofibrate Active Medications Medication Date Status Form Strength Qnty SIG Indications Ordering Provider Lisinopril 02/05 Active Tablets 5mg 90tab 1 by mouth [place] /2016 s every day Fiona Lyle M.D. Metoprolol 02/05 Active Tablets 25mg 90tab 1/2 tablet Everett Tartrate /2016 s by mouth D. Brand, twice a M.D. day Atorvastatin 02/05 Active Tablets 80mg 90tab 1 by mouth [place] Calcium s every day Fiona Lyle, ( taken at M.D. bedtime) Aspirin Adult Low 02/[address] 81mg 100ta 1 by mouth Everett Dose bs every day Fiona Lyle, ( take Am) M.D. Nitrostat Active Tablets Sub 0.4mg one sl Unknown q5min up to 3 doses as needed Docusate Sodium Active Capsules 100mg 1 cap at Unknown /0000 bedtime Tacrolimus Active Capsules 1mg 1 cap Unknown /0000 twice a day. 2mg in am , 1 mg in pm Mycophenolate Active Capsules 250mg take twice Unknown Mofetil /0000 daily Trimethobenzamide Active Capsules 300mg as needed Unknown HCL /0000 Montelukast Active Tablets 10mg 1 by mouth Unknown Sodium /0000 every day Hydrocodone-Aceta Active Tablets 5-500mg 1 by mouth Unknown minophen /0000 every 8 hours as needed Multivitamin Active Chewtabs once a day Unknown Adult /0000 Ondansetron HCL Active Tablets 4mg two by Unknown /0000 mouth every 8 hours as needed for nausea Prednisone Active Tablets 5mg 1 by mouth Unknown /0000 every other day, (even days). Q96-[id number] Active Chewtabs 1mg take one Unknown /0000 capsule/ta blet daily sublingual ly Citracal Calcium Active Chewtabs 250-115-2 2 chew Unknown Gummies /0000 50mg-mg-U gummies nit twice daily Omeprazole Active Capsules DR 40mg Take One Unknown /0000 Capsule By Mouth Every Day ( taken Am) Lantus Solostar Active Solution 100Unit/M inject 40 Unknown /0000 Pen-Inject L unit every pm Bumex Active Tablets 1mg 1 by mouth Unknown /0000 every day Citalopram Active Tablets 20mg 3 by mouth Unknown Hydrobromide /0000 every day Fluticasone Active Suspension 50mcg/Act 2 puffs Unknown Propionate /0000 each nare every in the morning Brilinta 02/05 Hx Tablets 90mg 180ta 1 tab by Everett bs mouth D. Brand, - twice a M.D. Citalopram Hx Tablets 20mg 1 by mouth Unknown Hydrobromide /0000 every day - plus 10 mg 05/30 to make mg total Citalopram Hx Tablets 10mg 3 tablet Unknown Hydrobromide /0000 po daily - (Taken 8 06/03 Am) Humalog Mix 75/25 00 Hx Suspension (75-25)10 30 units Unknown /0000 0Unit/ML at hs - 06/03 Novolin R Hx Solution 100Unit/M 10 units Unknown /0000 L twice - daily 11/[address] 20mg 1 by mouth Unknown /0000 every day - 05/30 Zantac OTC Hx 150mg 1 by mouth Unknown /0000 twice per - day as 06/03 needed ( taken 1 tablet at bedtime starting 05/13/17) Alprazolam ER Hx Tablets ER 1mg Take 1 Unknown /0000 24HR Tablet By - Mouth 06/03 Every ( taken Am) Alprazolam Hx Tablets 0.5mg Take 1 Or Unknown /0000 2 Tablets - By Mouth 06/03 Night Before Bed as Needed MDD 2 ( taken a tbedtime PM) Immunizations Description No Information Available Vital Signs Date Vital Result Comment 06/04/2018 8:47am Height 65 inches 5'5" Weight 216.00 lb w/o shoes Heart Rate 60 /min reg BP Systolic Lying Down 120 mmHg Rue lg cuff BP Diastolic Lying Down 70 mmHg Rue lg cuff BP Systolic Recheck 115 mmHg Rue lg cuff BP Diastolic Recheck 65 mmHg Rue lg cuff Pain Level 16 BMI (Body Mass Index) 35.9 kg/m2 Ejection Fraction 55-60% 05/01/17 echo 11/13/2017 9:14am Height 65 inches 5'5" Weight 208.00 lb with shoes Heart Rate 54 /min BP Systolic Sitting 104 mmHg Lue lg cuff BP Diastolic Sitting 60 mmHg Lue lg cuff BP Systolic Standing 112 mmHg Lue lg cuff BP Diastolic Standing 64 mmHg Lue lg cuff Respiratory Rate 16 /min BMI (Body Mass Index) 34.6 kg/m2 Ejection Fraction 55-60% date 04/12/17 ECHO 05/31/2017 3:32pm Height 65 inches 5'5" Weight 207.50 lb Heart Rate 65 /min BP Systolic Sitting 130 mmHg BP Diastolic Sitting 60 mmHg BP Systolic Standing 125 mmHg BP Diastolic Standing 60 mmHg Respiratory Rate 16 /min BMI (Body Mass Index) 34.5 kg/m2 Ejection Fraction 55-60% 04/12/2017 04/17/2017 1:12pm Height 65 inches 5'5" Weight 212.00 lb Heart Rate 60 /min BP Systolic Sitting 112 mmHg Rue large cuff BP Diastolic Sitting 72 mmHg Rue large cuff BP Systolic Standing 102 mmHg Rue BP Diastolic Standing 66 mmHg Rue Respiratory Rate 16 /min BMI (Body Mass Index) 35.3 kg/m2 Ejection Fraction 55-60% 04/12/17 02/12/2017 1:24pm Height 65 inches 5'5" Weight 217.00 lb w/ shoes Heart Rate 60 /min 55 on home BP machine BP Systolic 99 mmHg home BP machine BP Diastolic 59 mmHg home BP machine BP Systolic Sitting 104 mmHg BP Diastolic Sitting 62 mmHg Respiratory Rate 18 /min BMI (Body Mass Index) 36.1 kg/m2 Ejection Fraction 45-50% echo 02/04/17 Results Description No Information Available Procedures Date Code Description Status 06/04/2018 48571 EKG Tracing & Interpretation Completed 05/31/2017 25541 EKG Tracing & Interpretation Completed 05/27/2017 00505 Treadmill Interp/Report Only Completed 05/27/2017 40391 Stress Test Supervsn W/Out I/R Completed 05/21/2017 84093 Treadmill Interp/Report Only Completed 05/21/2017 79908 Stress Test Supervsn W/Out I/R Completed 04/12/2017 08582 ECHO Transthoracic, Real-Time 2D With Doppler And Color Completed Flow 04/12/2017 53528 ECHO Transthoracic, Real-Time 2D With Doppler And Color Completed Flow 02/12/2017 40328 EKG Tracing & Interpretation Completed 02/05/2017 53313 EKG, Interpretation Only Completed 02/04/2017 87768 Cath PLMT&NJX L Ventriculog Img S&I Completed 02/04/2017 60167 ECHO Transthorasic Realtime 2D W Doppler & Color Flow Hosp Completed 02/04/2017 82135 EKG, Interpretation Only Completed 02/04/2017 03200 Revascularization Acute Total/Subtotal Occlusion Completed 11/20/2007 07748 EKG, Interpretation Only Completed 11/20/2007 56783 EKG, Interpretation Only Completed Encounters Type Date Location Provider Dx Diagnosis Office Visit 11/13/2017 [place] Praneeth Jaimes I25.10 Athscl heart disease of 9:15a Of [place] Lyle M.D. [place] coronary artery w/o ang pctrs Office Visit 05/31/2017 [place] Praneeth Jaimes R94.31 Abnormal 3:45p Of Cordelia Lyle M.D. electrocardiogram [ECG] [EKG] I25.10 Athscl heart disease of [place] coronary artery w/o ang pctrs Z94.0 Kidney transplant status Office Visit 04/17/2017 [facility] Jaimes R94.31 Abnormal 1:30p [facility] Of [facility] Lyle electrocardiogram Cordelia [ECG] [EKG] I25.10 Athscl heart disease of [place] coronary artery w/o ang pctrs I42.9 Cardiomyopathy, unspecified Office Visit 02/12/2017 1:30p [facility] Everett Jaimes I21.4 Non-St elevation Of [facility] Huma Lyle ([facility]) myocardial infarction R94.31 Abnormal electrocardiogram [ECG] [EKG] I25.10 Athscl heart disease of [place] coronary artery w/o ang pctrs Z94.0 Kidney transplant status Office Visit 02/05/2017 9:53a [facility] Bernard S72.001A Fracture of gui Guevara M.D. unsp part of Hospitalists neck of right femur, init D62 Acute posthemorrhagic anemia J11.1 Flu due to unidentified influenza virus w oth resp manifest E87.1 Hypo-osmolality and hyponatremia Office Visit 02/05/2017 2:37p [facility] Everett Jaimes I21.4 Non-St elevation Of Cordelia Lyle M.D. ([facility]) myocardial infarction I25.10 Athscl heart disease of [place] coronary artery w/o ang pctrs Office Visit 02/04/2017 9:52a [facility] Marly I21.4 Non-St elevation Assocgui D.O. ([facility]) Hospitalists myocardial infarction E11.9 Type 2 diabetes mellitus without complications Z79.4 [facility] (current) use of insulin Z94.0 Kidney transplant status Office Visit 02/04/2017 11:27a [facility] Everett Jaimes I21.4 Non-St elevation Of Cordelia Lyle M.D. ([facility]) myocardial infarction R94.31 Abnormal electrocardiogram [ECG] [EKG] R07.9 Chest pain, unspecified I25.10 Athscl heart disease of [place] coronary artery w/o ang pctrs Office Visit 02/03/2017 9:52a [facility] [place], R07.9 Chest pain , Assoc,pc N.P. unspecified Hospitalists E11.9 Type 2 diabetes mellitus without complications Z79.4 [facility] (current) use of insulin Z94.0 Kidney transplant status Plan of Treatment 06/04/2018 - [place] Lyle M.D.I25.10 Atherosclerotic heart disease of [place] coronary artery withFollow up:1 yearR94.31 Abnormal electrocardiogram [ ECG] [EKG]
[2018-06-23 14:32] VITALS: BP 112/51
== END 2018-06-23 14:31 | disposition home or self-care (01) ==
LOC: ED 13:22
DX: S50.312A Abrasion of left elbow, initial encounter (principal); V47.5XXA Car driver injured in collision with fixed or stationary object in traffic accident, initial encounter; Y92.410 Unspecified street and highway as the place of occurrence of the external cause; E11.9 Type 2 diabetes mellitus without complications; I25.10 Atherosclerotic heart disease of native coronary artery without angina pectoris; E78.00 Pure hypercholesterolemia, unspecified; I10 Essential (primary) hypertension; I25.2 Old myocardial infarction; Z94.0 Kidney transplant status
CPT/HCPCS: 72100; 99282; A9270-GY

== ENCOUNTER 2018-06-26 21:19 | Emergency (ER) | payer BC ==
[2018-06-26] MEDS ORDERED: Morphine 4 MG/ML VIAL (1 ml) 4 MG/ML VIAL IM ONE (21:36)
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
[2018-06-26 23:18] VITALS: BP 142/72
== END 2018-06-26 23:19 | disposition home or self-care (01) ==
LOC: ED 21:19
DX: M51.26 Other intervertebral disc displacement, lumbar region (principal); I10 Essential (primary) hypertension; I25.2 Old myocardial infarction; I25.10 Atherosclerotic heart disease of native coronary artery without angina pectoris; E11.9 Type 2 diabetes mellitus without complications; E78.00 Pure hypercholesterolemia, unspecified; Z88.8 Allergy status to other drugs, medicaments and biological substances; Z88.3 Allergy status to other anti-infective agents; Z97.4 Presence of external hearing-aid; Z94.0 Kidney transplant status; Z87.891 Personal history of nicotine dependence
CPT/HCPCS: 72131; 96374; 99283; J2270

== ENCOUNTER 2018-06-30 15:37 | Emergency (ER) | payer BC ==
--- OUTSIDE RECORDS SUMMARY | 2018-06-30 15:45 | XMS REPORT | Continuity of Care Document ---
:1960 External Reference #:[id number] Author Name Jocy Tavarez Care Team Providers Name Role Phone Krunal Starr MD Primary Care Physician Unavailable Payers Date Identification Numbers Payment Provider Subscriber Policy Number: [id number] [facility] Kinjal Cordova PayID: [id number] [address] [place] [address] Expires: 2017 Policy Number: [id number] Medicare Kinjal Cordova PayID: [id number] [address] [place] [address] Advance Directives Description No Information Available Problems Description No Information Family History Date Family Member(s) Observation Comments Father [place] Father Stroke Mother due to Renal Failure () Mother due to Sepsis () Siblings 3 brother waiting for kidney transplant, and 1 sister with kidney transplant Social History Type Date Description Comments Sex Unknown Marital Status Lives With 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 [employer] Tobacco Use Start: Unknown Never Smoked Cigarettes Smoking Status Reviewed: 06/30/18 Never Smoked Cigarettes ETOH Use Occasionally consumes alcohol Tobacco Use Start: Unknown Patient has never smoked Recreational Drug Use Denies Drug Use Exercise Type/Frequency Does not exercise Allergies, Adverse Reactions, Alerts Active Allergies Reaction Severity Comments Date Droperidol / Fentanyl 02/12/2017 Compazine 02/12/2017 Reglan difficulty breathing 02/12/2017 Fenofibrate 05/31/2017 Medications Active Medications SIG Qnty Indications Ordering Date Provider Cyclobenzaprine HCL take 1 tablet by 21tabs cSot Chao, 06/30/2018 10mg mouth up to three M.D. Tablets times a day as needed Lisinopril 1 by mouth every 90tabs Everett Jaimes 02/05/2017 5mg Tablets day Huma Lyle Metoprolol Tartrate 1/2 tablet by 90tabs Everett Jaimes 02/05/2017 25mg mouth twice a day Huma Lyle Tablets Atorvastatin Calcium 1 by mouth every 90tabs Everett Jaimes 02/05/2017 80mg day ( taken at Huma Lyle Tablets bedtime) Aspirin Adult Low Dose 1 by mouth every 100tabs Everett Jaimes 02/05/2017 81mg day ( take Am) Huma Lyle Tablets DR Percocet 1 - 2 tabs by Unknown 5-325mg Tablets mouth every 4 - 6 hours as needed for pain. Fluticasone Propionate 2 puffs each nare Unknown every in the 50mcg/Act Suspension morning Citalopram Hydrobromide 3 by mouth every Unknown day 20mg Tablets Bumex 1 by mouth every Unknown 1mg Tablets day Lantus Solostar inject 40 unit Unknown 100Unit/ML every pm Solution Pen-Inject Omeprazole Take One Capsule Unknown 40mg Capsules DR By Mouth Every Day ( taken Am) Citracal Calcium 2 chew gummies Unknown Gummies twice daily [id number]-mg-Unit Chewtabs F45-Ebontb take one Unknown 1mg Chewtabs capsule/tablet daily sublingually Prednisone 1 by mouth every Unknown 5mg Tablets other day, (even days). Ondansetron HCL two by mouth every Unknown 4mg Tablets 8 hours as needed for nausea Multivitamin Adult once a day Unknown Chewtabs Hydrocodone-Acetaminoph 1 by mouth every 8 Unknown en hours as needed 5-500mg Tablets Montelukast Sodium 1 by mouth every Unknown 10mg day Tablets Trimethobenzamide HCL as needed Unknown 300mg Capsules Mycophenolate Mofetil take twice daily Unknown 250mg Capsules Tacrolimus 1 cap twice a day. Unknown 1mg Capsules 2mg in am , 1 mg in pm Docusate Sodium 1 cap at bedtime Unknown 100mg Capsules Nitrostat one sl q5min up to Unknown 0.4mg Tablets Sub 3 doses as needed History Medications Brilinta 1 tab by mouth 180tabs Everett Jaimes 02/05/2017 - 90mg Tablets twice a day Huma Lyle 06/03/2018 Citalopram 1 by mouth every Unknown - Hydrobromide day plus 10 mg to 05/30/2017 20mg Tablets make 30 mg total Citalopram 3 tablet po daily Unknown - Hydrobromide (Taken 8 Am) 06/03/2018 10mg Tablets Humalog Mix 75/25 30 units at hs Unknown - 06/03/2018 (75-25)100Unit/ML Suspension Novolin R 10 units twice Unknown - 100Unit/ML daily 11/12/2017 Solution Omeprazole 1 by mouth every Unknown - 20mg Capsules day 05/30/2017 DR Espinosa OTC 1 by mouth twice Unknown - 150mg per day as needed 06/03/2018 ( taken 1 tablet at bedtime starting 05/13/17) Alprazolam ER Take 1 Tablet By Unknown - 1mg Tablets Mouth Every Day ( 06/03/2018 ER 24HR taken Am) Alprazolam Take 1 Or 2 Unknown - 0.5mg Tablets Tablets By Mouth 06/03/2018 Every Night Before Bed as Needed MDD 2 ( taken a tbedtime PM) Immunizations Description No Information Available Vital Signs Date Vital Result Comment 06/30/2018 2:00pm Height 65 inches 5'5" Weight 216.00 lb Heart Rate 60 /min BP Systolic Sitting 128 mmHg BP Diastolic Sitting 82 mmHg Body Temperature 98.8 F BMI (Body Mass Index) 35.9 kg/m2 06/04/2018 8:47am Height 65 inches 5'5" Weight [...] Available Procedures Date Code Description Status 06/04/2018 31497 EKG Tracing & Interpretation Completed 05/31/2017 96380 EKG Tracing & Interpretation Completed 05/27/2017 24750 Treadmill Interp/Report Only Completed 05/27/2017 44566 Stress Test Supervsn W/Out I/R Completed 05/21/2017 88857 Treadmill Interp/Report Only Completed 05/21/2017 72838 Stress Test Supervsn W/Out I/R Completed 04/12/2017 75043 ECHO Transthoracic, Real-Time 2D With Doppler And Color Completed Flow 04/12/2017 37073 ECHO Transthoracic, Real-Time 2D With Doppler And Color Completed Flow 02/12/2017 15265 EKG Tracing & Interpretation Completed 02/05/2017 48707 EKG, Interpretation Only Completed 02/04/2017 61811 Cath PLMT&NJX L Ventriculog Img S&I Completed 02/04/2017 48283 ECHO Transthorasic Realtime 2D W Doppler & Color Flow Hosp Completed 02/04/2017 83782 EKG, Interpretation Only Completed 02/04/2017 52252 Revascularization Acute Total/Subtotal Occlusion Completed 11/20/2007 44788 EKG, Interpretation Only Completed 11/20/2007 84172 EKG, Interpretation Only Completed Encounters Type Date Location Provider Dx Diagnosis Office Visit 06/04/2018 [facility] Everett Jaimes I25.10 [facility] heart 9:00a Of [place] Lyle M.D. disease of [place] coronary artery w/o ang pctrs R94.31 Abnormal electrocardiogram [ECG] [EKG] Office Visit 11/13/2017 [facility] Jaimes I25.10 [facility] heart disease 9:15a Cardiology Ulysses Lyle M.D. of [place] coronary [place] artery w/o ang pctrs [place] R94.31 Abnormal 3:45p Cardiology Ulysses Lyle M.D. electrocardiogram [place] [ECG] [EKG] I25.10 [place]s[facility] heart disease of [place] coronary artery w/o ang pctrs Z94.0 Kidney transplant status Office Visit 04/17/2017 [facility] Jaimes R94.31 Abnormal 1:30p Cardiology Ulysses Lyle M.D. electrocardiogram [place] [ECG] [EKG] I25.10 Athscl heart disease of [place] coronary artery w/o ang pctrs I42.9 Cardiomyopathy, unspecified Office Visit 02/12/2017 1:30p [facility] Everett Jaimes I21.4 Non-St elevation Of [place] AT [facility] Huma Lyle ([place]) myocardial infarction R94.31 Abnormal electrocardiogram [ECG] [EKG] I25.10 Athscl heart disease of [place] coronary artery w/o ang pctrs Z94.0 Kidney transplant status [facility] Assoc,gui Fernandez M.D. unsp part of Hospitalists neck of right femur, init D62 Acute posthemorrhagic anemia J11.1 Flu due to unidentified influenza virus w oth resp manifest E87.1 Hypo-osmolality and hyponatremia Office Visit 02/05/2017 2:37p [facility] Everett Jaimes I21.4 Non-St elevation Of [place] Lyle M.D. ([place]) myocardial infarction I25.10 Athscl heart disease of [place] coronary artery w/o ang pctrs Office Visit 02/04/2017 9:52a [facility] Marly I21.4 Non-St elevation Assoc,pc Jarrett Guzman ([place]) Hospitalists myocardial infarction E11.9 Type 2 diabetes mellitus without complications Z79.4 [facility] (current) use of insulin Z94.0 Kidney transplant status Office Visit 02/04/2017 11:27a [facility] Everett Jaimes I21.4 Non-St elevation Of [place] Lyle M.D. ([place]) myocardial infarction R94.31 Abnormal electrocardiogram [ECG] [EKG] R07.9 Chest pain, unspecified I25.10 Athscl heart disease of [place] coronary artery w/o ang pctrs Office Visit 02/03/2017 9:52a [facility] Jessica Motley, R07.9 Chest pain , Assoc,pc N.P. 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
[2018-06-30 15:50] VITALS: BP 152/70
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
== END 2018-06-30 16:30 | disposition home or self-care (01) ==
LOC: UCEAST 15:37
DX: B02.9 Zoster without complications (principal); E78.5 Hyperlipidemia, unspecified; I11.9 Hypertensive heart disease without heart failure; K21.9 Gastro-esophageal reflux disease without esophagitis; Z94.0 Kidney transplant status; Z95.5 Presence of coronary angioplasty implant and graft; Z88.1 Allergy status to other antibiotic agents; Z88.8 Allergy status to other drugs, medicaments and biological substances
CPT/HCPCS: 99212; G0463